=== PATIENT | female | born 1990 | race Caucasian/White ===

== ENCOUNTER 2020-03-15 15:55 | Emergency (ER) | payer OTHER, SELFPAY ==
[2020-03-15 16:11] VITALS: BP 145/86; PULSE 93; RESP 16; TEMP 37.7; O2SAT 100
--- NOTE | 2020-03-15 16:22 | ED.SKABFB ---
HPI - Skin/Abscess/Foreign Bdy General Chief complaint: Skin/Abscess/Foreign Body Stated complaint: Bite Time Seen by Provider: 03/15/20 16:23 Source: patient and RN notes reviewed Mode of arrival: ambulatory Limitations: no limitations History of Present Illness HPI narrative: 30-year-old female presents with concern for an area on her wrist that is inflamed, red with drainage. Reports the area started out as a pimple, then became larger, redder and had drainage. Denies any intervention. Reports she picked at the area. MD complaint: abscess/boil Related Data Home Medications Medication Instructions Recorded Confirmed medroxyprogesterone [Depo-Provera] 150 mg IM [id number] 03/15/20 03/15/20 Allergies Allergy/AdvReac Type Severity Reaction Status Date / Time tramadol Allergy Severe Swelling Verified 03/15/20 16:23 of Lip/Tongue/Throat clindamycin Allergy Intermediate Chest Pain Verified 03/15/20 16:23 Review of Systems Review of Systems: Narrative: CONSTITUTIONAL: Denies malaise, chills, sweats, or fever. CARDIOVASCULAR: Denies chest pain, palpitations SKIN: Reports small red area, inflamed with drainage, on her right wrist MUSCULOSKELETAL: Denies myalgia. All systems reviewed & are unremarkable except as noted in HPI and below PMFSH Comments At time of signature, agree with nursing past medical, surgical, social and family history. There is no relevant family history pertinent to the presenting complaint Exam Narrative: Exam Narrative: GENERAL: Well-appearing, well-nourished, and in no acute distress. HEAD: Normocephalic NECK: Supple CHEST: No respiratory distress. Speaks in full sentences. HEART: Regular rate and rhythm. EXTREMITIES: Normal range of motion, normal strength and sensation. SKIN: Warm, dry, no rash. Small pustule, erythematous with a central scab consistent with folliculitis on the anterior right wrist NEURO: Alert and oriented x3. PSYCH: Normal mood and affect Course Course Emergency Course: Patient is aware of diagnosis, understands and agrees to treatment plan. Anticipatory guidance given. Patient agrees to follow-up as directed and is aware of reasons to seek care at the emergency department. Portions of this record may have been created with voice recognition software Vital Signs Vital signs: Vital Signs Temperature 99.9 F H 03/15/20 16:11 Pulse Rate 93 03/15/20 16:11 Respiratory Rate 16 03/15/20 16:11 Blood Pressure 145/86 H 03/15/20 16:11 Pulse Oximetry 100 03/15/20 16:11 Temperature 99.9 F H 03/15/20 16:11 Pulse Rate 93 03/15/20 16:11 Respiratory Rate 16 03/15/20 16:11 Blood Pressure 145/86 H 03/15/20 16:11 Pulse Oximetry 100 03/15/20 16:11 Reviewed. Patient has been instructed to follow up with her primary care provider within the next week regarding her elevated blood pressure today. MDM - Skin/Abscess/Foreign Bdy MDM Narrative Medical decision making narrative: Exam findings show no acute concerns or changes; patient is non-toxic appearing and is in no distress. Patient is appropriate for outpatient treatment and follow-up. Differential Diagnosis Differential diagnosis: Likely abscess of skin or subcutaneous tissue, cellulitis and insect bites Critical Care Time Critical Care Time Critical Care Time: No Discharge Plan Discharge Clinical Impression: Folliculitis Patient Disposition: Home, Self-Care Condition: Stable Instructions: Antibiotic Form, Folliculitis (ED) Additional Instructions: Please follow up with your Primary Care Doctor if symptoms worsen or do not improve. Rest and elevate affected area; apply moist heat 3-4 times daily for 10-15 minutes. Take Motrin 600mg every 8 hours with food for pain. Please use antibiotic ointment as directed. If you experience any worsening redness, swelling, streaking (red lines), fever or chills please go to the ER Your blood pressure was elevated above 120/80 today at [facility]
== END 2020-03-15 16:33 | disposition home or self-care (01) ==
PROVIDERS: Emergency Provider Nurse Practitioner
DX: L73.9 Follicular disorder, unspecified (principal); R03.0 Elevated blood-pressure reading, without diagnosis of hypertension
CPT/HCPCS: 99203; G0463

== ENCOUNTER 2021-03-14 19:13 | Emergency (ER) | payer OTHER, SELFPAY ==
--- NOTE | 2021-03-14 19:17 | ED.EYEPROB ---
HPI - Eye Problem General Chief complaint: Eye Problems Stated complaint: Redness, pain and swollen left Eye Time Seen by Provider: 03/14/21 19:23 Source: patient and RN notes reviewed Mode of arrival: ambulatory Limitations: no limitations History of Present Illness HPI Narrative: 41-year-old female presents concern for left upper eyelid pain, redness, swelling. Reports symptoms started 2 days ago. She reports some crusted drainage on the eyelid. Reports vision changes, eye redness. Denies injury or trauma. MD chief complaint: eye pain Related Data Home Medications Medication Instructions Recorded Confirmed medroxyprogesterone [Depo-Provera] 150 mg IM [id number] 03/15/20 03/14/21 Allergies Allergy/AdvReac Type Severity Reaction Status Date / Time tramadol Allergy Severe Swelling Verified 03/14/21 19:27 of Lip/Tongue/Throat clindamycin Allergy Intermediate Chest Pain Verified 03/14/21 19:27 bacitracin Allergy Mild rash Verified 03/14/21 19:32 [From Neosporin ([id number])] neomycin Allergy Mild rash Verified 03/14/21 19:32 [From Neosporin ([id number])] polymyxin B Allergy Mild rash Verified 03/14/21 19:32 [From Neosporin ([id number])] Review of Systems Review of Systems: CONSTITUTIONAL: Denies malaise, chills, sweats, or fever. EYES: Denies visual changes. Reports left eyelid redness, swelling, pain, discharge. ENT: Denies rhinorrhea, congestion, sinus pain, otalgia or sore throat. SKIN: Denies rash or itching. All systems reviewed & are unremarkable except as noted in HPI and below PMFSH Comments At time of signature, agree with nursing past medical, surgical, social and family history. There is no relevant family history pertinent to the presenting complaint Exam Narrative: GENERAL: Well-appearing, well-nourished, and in no acute distress. HEAD: Normocephalic, atraumatic. EYES: PERRLA, conjunctivae clear, sclera clear, and EOMI. No nystagmus. Left upper eyelid erythema, edema noted ENT: Nares clear. Mucous membranes moist. NECK: Supple. CHEST: No respiratory distress. Speaks in full sentences. HEART: Regular rate and rhythm. SKIN: Warm, dry, no rash. NEURO: Alert and oriented x3. PSYCH: Normal mood and affect Course Course Emergency Course: Patient is aware of diagnosis, understands and agrees to treatment plan. Anticipatory guidance given. Patient agrees to follow-up as directed and is aware of reasons to seek care at the emergency department. Portions of this record may have been created with voice recognition software Vital Signs Vital signs: Reviewed. MDM - Eye Problem MDM Narrative Medical decision making narrative: Consideration of the following conditions may be warranted for the presenting problem, they are not final diagnoses: Bacterial conjunctivitis, allergic conjunctivitis, viral conjunctivitis, foreign body, blepharitis, chalazion, hordeolum, corneal abrasion, preseptal cellulitis, orbital cellulitis. No evidence of proptosis, ophthalmoplegia, vision loss, pain with eye movement. Exam findings show no acute concerns or changes; patient is non-toxic appearing and is in no distress. Patient is appropriate for outpatient treatment and follow-up. Critical Care Time Critical Care Time Critical Care Time: No Discharge Plan Discharge Clinical Impression: Hordeolum Qualifiers: Hordeolum type: internum Laterality: left Eyelid: upper Qualified Code(s): H00.024 - Hordeolum internum left upper eyelid Patient Disposition: Home, Self-Care Condition: Stable Instructions: Otto (ED) Additional Instructions: Do not touch or rub your eye. Use a warm compress on your eye 4-5 times daily Use eyedrops as directed Practice good handwashing You may take Tylenol or ibuprofen for pain Follow-up with PCP or dental manager if condition is not improving in 2-3days. Go to the emergency room if you have pain behind your eye, pressure behind
[2021-03-14 19:20] VITALS: BP 123/74; PULSE 69; RESP 16; TEMP 37.3; O2SAT 99
[2021-03-14 19:28] VITALS: BP 123/74; PULSE 69; RESP 16; TEMP 37.3; O2SAT 99
== END 2021-03-14 19:37 | disposition home or self-care (01) ==
PROVIDERS: Emergency Provider Nurse Practitioner
DX: H00.024 Hordeolum internum left upper eyelid (principal)
CPT/HCPCS: 99213; G0463

== ENCOUNTER 2021-09-15 18:52 | Emergency (ER) | payer OTHER, SELFPAY ==
[2021-09-15 19:02] VITALS: BP 122/79; PULSE 87; RESP 14; TEMP 37.7; O2SAT 100
--- NOTE | 2021-09-15 19:23 | ED.URI ---
HPI - URI/Sore Throat General Chief Complaint: Upper Respiratory Infection Stated Complaint: sinus infection Time Seen by Provider: 09/15/21 19:26 Source: patient Mode of arrival: ambulatory Limitations: no limitations History of Present Illness HPI Narrative: 31-year-old female presented for complaint of sinus pressure and congestion for approximately 4 weeks. At the onset of symptoms, she was positive for Covid. Currently endorses sinus congestion, postnasal drainage and cough. She denies ear pain, sore throat, headache or dizziness, wheezing, or shortness of breath. Has been taking DayQuil and Vicks for her symptoms. MD elicited complaint: cough Related Data Home Medications Medication Instructions Recorded Confirmed medroxyprogesterone [Depo-Provera] 150 mg IM [id number] 03/15/20 03/14/21 Allergies Allergy/AdvReac Type Severity Reaction Status Date / Time tramadol Allergy Severe Swelling Verified 03/14/21 19:27 of Lip/Tongue/Throat clindamycin Allergy Intermediate Chest Pain Verified 03/14/21 19:27 bacitracin Allergy Mild rash Verified 03/14/21 19:32 [From Neosporin ([id number])] neomycin Allergy Mild rash Verified 03/14/21 19:32 [From Neosporin ([id number])] polymyxin B Allergy Mild rash Verified 03/14/21 19:32 [From Neosporin ([id number])] Review of Systems Review of Systems: CONSTITUTIONAL: Denies malaise, chills, sweats, fever. EYES: Denies visual changes, redness, or discharge. ENT: Reports rhinorrhea, congestion, sinus pain, otalgia and sore throat. CARDIOVASCULAR: Denies chest pain, palpitations, or edema. RESPIRATORY: Reports cough, sinus congestion and post nasal drainage. Denies dyspnea. GASTROINTESTINAL: Denies abdominal pain, nausea, vomiting, diarrhea SKIN: Denies rash or itching. MUSCULOSKELETAL: Denies myalgia. NEUROLOGIC: Denies headache. Exam Narrative: GENERAL: Ill-appearing, nontoxic no acute distress. HEAD: Normocephalic EYES: PERRLA, conjunctivae clear ENT: Mucous membranes moist. TM pearly abel with dull light reflex bilaterally, bilateral canals erythematous; no tragal tenderness. Oropharynx erythematous without lesions and without exudate, no drooling, no hoarseness, uvula midline. NECK: Supple. No lymphadenopathy CHEST: Clear to auscultation, breath sounds equal. No wheezing, rhonchi, rales, or stridor. No respiratory distress, speaks in full sentences. HEART: Regular rate and rhythm. No murmur heard. SKIN: Warm, dry, no rash. NEURO: Alert and oriented x3. PSYCH: Normal mood and affect Course Course Emergency Course: Patient is aware of diagnosis, understands and agrees to treatment plan. Anticipatory guidance given. Patient agrees to follow-up as directed and is aware of reasons to seek care at the emergency department. Portions of this record may have been created with voice recognition software Level of Care: Express Care Visit Vital Signs Vital signs: Vital Signs Temperature 99.9 F H 09/15/21 19:02 Pulse Rate 87 09/15/21 19:02 Respiratory Rate 14 09/15/21 19:02 Blood Pressure 122/79 09/15/21 19:02 Pulse Oximetry 100 09/15/21 19:02 Temperature 99.9 F H 09/15/21 19:02 Pulse Rate 87 09/15/21 19:02 Respiratory Rate 14 09/15/21 19:02 Blood Pressure 122/79 09/15/21 19:02 Pulse Oximetry 100 09/15/21 19:02 reviewed MDM - URI/Sore Throat Differential Diagnosis Differential diagnosis: Likely upper respiratory infection, sinusitis and viral infection Discharge Plan Discharge Clinical Impression: Upper respiratory infection Qualifiers: URI type: unspecified URI Qualified Code(s): J06.9 - Acute upper respiratory infection, unspecified Patient Disposition: Home, Self-Care Condition: Stable Instructions: Antibiotic Form, Rhinosinusitis (ED) Additional Instructions: Recommend Flonase or Vicks spray and Zyrtec Tylenol 1000mg every 8 hours as needed for pain/pressure, alternate with
== END 2021-09-15 19:39 | disposition home or self-care (01) ==
PROVIDERS: Emergency Provider Nurse Practitioner Family
DX: J06.9 Acute upper respiratory infection, unspecified (principal); Z86.16 Personal history of COVID-19
CPT/HCPCS: 99213; G0463

== ENCOUNTER 2021-10-02 19:26 | Emergency (ER) | payer OTHER, SELFPAY ==
[2021-10-02 19:30] VITALS: BP 130/77; PULSE 83; RESP 14; TEMP 36.4; O2SAT 100
--- NOTE | 2021-10-02 19:48 | ED.URI ---
HPI - URI/Sore Throat General Chief Complaint: Upper Respiratory Infection Stated Complaint: Chest Congestion Time Seen by Provider: 10/02/21 19:39 Source: patient and RN notes reviewed Mode of arrival: ambulatory Limitations: no limitations History of Present Illness HPI Narrative: Patient presents today complaining of chest congestion. 1 week ago she was seen in the ER at [facility] and was diagnosed with pneumonia. She was placed on Levaquin at that time and finished her last pill today. States her symptoms had significantly improved but she has some lingering chest congestion with occasional productive cough as well as some shortness of breath with exertion. She has been taking some Zyrtec and Flonase as well. She is wondering if she needs another course of antibiotics. Prior to being seen in the ER, on 09/15/2021, she was seen at urgent care and diagnosed with a URI, and placed on 7 days of Augmentin. MD elicited complaint: cough (Chest congestion) Related Data Home Medications Medication Instructions Recorded Confirmed medroxyprogesterone [Depo-Provera] 150 mg IM [id number] 03/15/20 10/02/21 Allergies Allergy/AdvReac Type Severity Reaction Status Date / Time tramadol Allergy Severe Swelling Verified 10/02/21 19:34 of Lip/Tongue/Throat clindamycin Allergy Intermediate Chest Pain Verified 10/02/21 19:34 bacitracin Allergy Mild rash Verified 10/02/21 19:34 [From Neosporin ([id number])] neomycin Allergy Mild rash Verified 10/02/21 19:34 [From Neosporin ([id number])] polymyxin B Allergy Mild rash Verified 10/02/21 19:34 [From Neosporin ([id number])] Review of Systems Review of Systems: CONSTITUTIONAL: Denies body aches, fever, chills, or sweats. EYES: Denies visual changes, redness, or discharge. ENT: Denies rhinorrhea, congestion, sore throat, or otalgia. CARDIOVASCULAR: Denies chest pain, palpitations, or edema. RESPIRATORY: + Cough, chest congestion, shortness of breath with exertion GASTROINTESTINAL: Denies abdominal pain, nausea, vomiting, or diarrhea. GENITOURINARY: Denies dysuria or hematuria. SKIN: Denies rash, itching, or wounds. MUSCULOSKELETAL: Denies back pain, joint pain, or myalgia. NEUROLOGIC: Denies headache, numbness, tingling, or weakness. PSYCH: Denies depression or anxiety. PMFSH Comments At time of signature, I have reviewed and agree with nursing past medical, surgical, social and family history unless otherwise noted. Please see nursing chart for further information. There is no relevant family history pertinent to the presenting complaint Exam Narrative: GENERAL: Well-appearing, well-nourished, and in no acute distress. HEAD: Normocephalic, atraumatic. EYES: EOMI. No redness or drainage. Conjunctivae normal. ENT: Mucous membranes pink and moist. Nares clear. No rhinorrhea. TMs normal bilaterally. Throat normal. Uvula midline. NECK: Normal AROM. Supple. No lymphadenopathy. CHEST: No respiratory distress. Clear to auscultation. HEART: Regular rate and rhythm. No murmur appreciated. Normal peripheral pulses. EXTREMITIES: Normal range of motion. No edema. SKIN: Warm, dry, no rash. Capillary refill normal. Normal skin turgor. NEURO: No focal deficits. Alert and oriented x3. Gait steady. PSYCH: Normal affect. No signs of depression or anxiety. Course Course Level of Care: Express Care Visit Vital Signs Vital signs: Vital Signs Temperature 97.6 F 10/02/21 19:30 Pulse Rate 83 10/02/21 19:30 Respiratory Rate 14 10/02/21 19:30 Blood Pressure 130/77 10/02/21 19:30 Pulse Oximetry 100 10/02/21 19:30 Temperature 97.6 F 10/02/21 19:30 Pulse Rate 83 10/02/21 19:30 Respiratory Rate 14 10/02/21 19:30 Blood Pressure 130/77 10/02/21 19:30 Pulse Oximetry 100 10/02/21 19:30 Reviewed. Pt has been instructed to follow up with her PCP regarding her elevated blood pressure today. WHIT - ADE/Cale Partida
== END 2021-10-02 19:50 | disposition home or self-care (01) ==
PROVIDERS: Emergency Provider Nurse Practitioner
DX: R09.89 Other specified symptoms and signs involving the circulatory and respiratory systems (principal)
CPT/HCPCS: 99213; G0463

== ENCOUNTER 2022-02-23 19:22 | Emergency (ER) | payer OTHER, SELFPAY ==
--- NOTE | 2022-02-23 19:23 | ED.URI ---
HPI - URI/Sore Throat General Chief Complaint: Upper Respiratory Infection Stated Complaint: chest congestion Time Seen by Provider: 02/23/22 19:23 Source: patient and RN notes reviewed History of Present Illness HPI Narrative: Patient is a 31-year-old female who presents the urgent care with complaints of chest congestion for 1 week. Patient states that she has had a harsh cough and has been to continue to smoke cigarettes. Patient states she went to [facility] ER last week and they were more focused on the nausea, vomiting and dehydration. Patient states that she took Zofran and did have resolution of those symptoms. Patient states that her COVID was negative at that time. Patient has not taken anything [id number] for her symptoms. No other acute complaints. No acute distress noted. Patient aware of the plan of care. Some parts of this dictation were generated by voice recognition software and may contain typographical and/or grammatical inaccuracies. Related Data Home Medications Medication Instructions Recorded Confirmed medroxyprogesterone 150 mg/mL 150 mg IM [id number] 03/15/20 02/23/22 intramuscular syringe (Depo-Provera) ondansetron 4 mg disintegrating 1 tablet PRN 02/23/22 02/23/22 tablet Allergies Allergy/AdvReac Type Severity Reaction Status Date / Time tramadol Allergy Severe Swelling Verified 02/23/22 19:34 of Lip/Tongue/Throat clindamycin Allergy Intermediate Chest Pain Verified 02/23/22 19:34 bacitracin Allergy Mild rash Verified 02/23/22 19:34 [From Neosporin ([id number])] neomycin Allergy Mild rash Verified 02/23/22 19:34 [From Neosporin ([id number])] polymyxin B Allergy Mild rash Verified 02/23/22 19:34 [From Neosporin ([id number])] Review of Systems Review of Systems: CONSTITUTIONAL: Denies fever, chills, or sweats. EYES: Denies visual changes, redness, or discharge. ENT: Denies rhinorrhea, congestion, sore throat, or otalgia. CARDIOVASCULAR: Denies chest pain, palpitations, or edema. RESPIRATORY: Reports of productive cough with intermittent dyspnea and wheezes GASTROINTESTINAL: Denies abdominal pain, nausea, vomiting, or diarrhea. GENITOURINARY: Denies dysuria or hematuria. SKIN: Denies rash or itching. MUSCULOSKELETAL: Denies back pain, joint pain, or myalgia. NEUROLOGIC: Denies headache, numbness, or weakness. All other systems reviewed are negative, except as documented in HPI. PMFSH Comments At the time of my signature, I reviewed and agree with the nursing past medical, surgical, social, and family history. There is no relevant family history pertinent to the patient complaint. Exam Narrative: GENERAL: This is a well-nourished, well-developed patient, in no apparent distress. HEAD: normocephalic, atraumatic. EYES: PERRL. Sclera clear/white. Vision is grossly intact. EARS: External ears normal, auditory canals clear and without drainage, TMs normal without perforation. Hearing grossly intact. NOSE: External nose normal with no obvious nasal discharge, nares without redness, no rhinorrhea. THROAT: Mucous membranes moist, posterior pharynx clear. Moderate postnasal drainage NECK: Neck supple CARDIOVASCULAR: Regular rate and rhythm without murmurs, gallops, or rubs. RESPIRATORY: Scant amatory wheezes with crackles throughout SKIN: warm, intact with no suspicious lesions or rash, good texture and turgor. NEURO: awake, alert, and oriented to person, place and time. There were no obvious focal neurologic abnormalities. EXTREMITIES: No clubbing, cyanosis, or edema. Course Course Level of Care: Express Care Visit Vital Signs Vital signs: Vital Signs Temperature 97.8 F 02/23/22 19:26 Pulse Rate 83 02/23/22 19:26 Respiratory Rate 14 02/23/22 19:26 Blood Pressure 134/90 02/23/22 19:26 Pulse Oximetry 100 02/23/22 19:26 Oxygen Delivery Room Air 02/23/22 19:26 Temperature 97.8 F 02/23/22 19:26 Pu
[2022-02-23 19:26] VITALS: BP 134/90; PULSE 83; RESP 14; TEMP 36.6; O2SAT 100
== END 2022-02-23 19:51 | disposition home or self-care (01) ==
PROVIDERS: Emergency Provider Nurse Practitioner Family
DX: J40 Bronchitis, not specified as acute or chronic (principal); J44.9 Chronic obstructive pulmonary disease, unspecified
CPT/HCPCS: 99213; G0463

== ENCOUNTER 2022-03-05 19:15 | Emergency (ER) | payer OTHER, SELFPAY ==
[2022-03-05 19:24] VITALS: BP 137/73; PULSE 94; RESP 16; TEMP 37.2; O2SAT 98
--- NOTE | 2022-03-05 19:31 | ED.GENADULT ---
HPI - General Adult General Chief complaint: Skin/Abscess/Foreign Body Stated complaint: mouth is on fire Time Seen by Provider: 03/05/22 19:30 Source: patient Mode of arrival: ambulatory History of Present Illness HPI narrative: 32-year-old female presented for complaint of white patches to her mouth after taking an antibiotic. She states she has a thrush that she has had in the past. Symptoms started about 3 days ago. She denies any other yeast symptoms. Related Data Home Medications Medication Instructions Recorded Confirmed medroxyprogesterone 150 mg/mL 150 mg IM [id number] 03/15/20 03/05/22 intramuscular syringe (Depo-Provera) Allergies Allergy/AdvReac Type Severity Reaction Status Date / Time tramadol Allergy Severe Swelling Verified 03/05/22 19:34 of Lip/Tongue/Throat clindamycin Allergy Intermediate Chest Pain Verified 03/05/22 19:34 bacitracin Allergy Mild rash Verified 03/05/22 19:34 [From Neosporin ([id number])] neomycin Allergy Mild rash Verified 03/05/22 19:34 [From Neosporin ([id number])] polymyxin B Allergy Mild rash Verified 03/05/22 19:34 [From Neosporin ([id number])] Review of Systems Review of Systems: CONSTITUTIONAL: Denies body aches, fever, chills ENT: Denies rhinorrhea, congestion, sore throat, or otalgia. CARDIOVASCULAR: Denies chest pain, palpitations RESPIRATORY: Denies cough or dyspnea. SKIN: Denies rash, itching, or wounds. MUSCULOSKELETAL: Denies myalgia. NEUROLOGIC: Denies headache, numbness, tingling, or weakness. PMFSH Comments At time of signature, I have reviewed and agree with nursing past medical, surgical, social and family history unless otherwise noted. Please see nursing chart for further information. There is no relevant family history pertinent to the presenting complaint Exam Narrative: GENERAL: Well-appearing EYES: EOMI. No redness or drainage. Conjunctivae normal. ENT: Dental pain location of Mucous membranes pink and moist. Scattered white patches to gums and oral mucosa. Throat normal. Uvula midline. CHEST: No respiratory distress. Clear to auscultation. HEART: Regular rate and rhythm. No murmur appreciated. SKIN: Warm, dry, no rash. Normal skin turgor. Left forearm with abrasion dried/scabbed NEURO: No focal deficits. Alert and oriented x3. Course Course Emergency Course: Patient is aware of diagnosis, understands and agrees to treatment plan. Anticipatory guidance given. Patient agrees to follow-up as directed and is aware of reasons to seek care at the emergency department. Portions of this record may have been created with voice recognition software Level of Care: Express Care Visit Vital Signs Vital signs: Vital Signs Temperature 99.0 F 03/05/22 19:24 Pulse Rate 94 03/05/22 19:24 Respiratory Rate 16 03/05/22 19:24 Blood Pressure 137/73 03/05/22 19:24 Pulse Oximetry 98 03/05/22 19:24 Oxygen Delivery Room Air 03/05/22 19:24 Temperature 99.0 F 03/05/22 19:24 Pulse Rate 94 03/05/22 19:24 Respiratory Rate 16 03/05/22 19:24 Blood Pressure 137/73 03/05/22 19:24 Pulse Oximetry 98 03/05/22 19:24 Oxygen Delivery Room Air 03/05/22 19:24 Medical Decision Making MDM Narrative Medical decision making narrative: Advised supportive measures and signs/symptoms to go to the ER. Pt is appropriate for outpt treatment and f/u. Differential Diagnosis Differential Diagnosis: Oral thrush, canker sores, gingivitis Vital Signs Vital Signs: Vital Signs Temperature 99.0 F 03/05/22 19:24 Pulse Rate 94 03/05/22 19:24 Respiratory Rate 16 03/05/22 19:24 Blood Pressure 137/73 03/05/22 19:24 Pulse Oximetry 98 03/05/22 19:24 Oxygen Delivery Room Air 03/05/22 19:24 Temperature 99.0 F 03/05/22 19:24 Pulse Rate 94 03/05/22 19:24 Respiratory Rate 16 03/05/22 19:24 Blood Pressure 137/73 03/05/22 19:24 Pulse Oximetry 9
== END 2022-03-05 20:00 | disposition home or self-care (01) ==
PROVIDERS: Emergency Provider Nurse Practitioner Family
DX: B37.0 Candidal stomatitis (principal); J44.9 Chronic obstructive pulmonary disease, unspecified
CPT/HCPCS: 99213; G0463

== ENCOUNTER 2022-05-25 19:10 | Emergency (ER) | payer SELFPAY ==
--- NOTE | 2022-05-25 19:30 | ED.URI ---
HPI - URI/Sore Throat General Chief Complaint: Upper Respiratory Infection Stated Complaint: Congestion cough Time Seen by Provider: 05/25/22 19:30 Source: patient and RN notes reviewed History of Present Illness HPI Narrative: Patient is a 32-year-old female who presents the urgent care with complaints of cough and congestion for 1 week. Patient states the cough is wet and productive yellow. Patient also reports of nasal congestion. Denies of any fevers, shortness of breath, nausea or vomiting. Denies any ill exposures. Patient states she is concerned because she is had a history of pneumonia and bronchitis in the past. Patient is a current smoker. Patient has been using her leftover inhaler. No other acute complaints. No acute distress noted. Patient aware of the plan of care. Some parts of this dictation were generated by voice recognition software and may contain typographical and/or grammatical inaccuracies. Related Data Home Medications Medication Instructions Recorded Confirmed medroxyprogesterone 150 mg/mL 150 mg IM [id number] 03/15/20 05/25/22 intramuscular syringe (Depo-Provera) Allergies Allergy/AdvReac Type Severity Reaction Status Date / Time tramadol Allergy Severe Swelling Verified 05/25/22 19:50 of Lip/Tongue/Throat clindamycin Allergy Intermediate Chest Pain Verified 05/25/22 19:50 bacitracin Allergy Mild rash Verified 05/25/22 19:50 [From Neosporin ([id number])] neomycin Allergy Mild rash Verified 05/25/22 19:50 [From Neosporin ([id number]-[id number])] polymyxin B Allergy Mild rash Verified 05/25/22 19:50 [From Neosporin ([id number])] Review of Systems Review of Systems: CONSTITUTIONAL: Denies fever, chills, or sweats. EYES: Denies visual changes, redness, or discharge. ENT: Reports of nasal congestion CARDIOVASCULAR: Denies chest pain, palpitations, or edema. RESPIRATORY: Reports a productive cough without dyspnea GASTROINTESTINAL: Denies abdominal pain, nausea, vomiting, or diarrhea. GENITOURINARY: Denies dysuria or hematuria. SKIN: Denies rash or itching. MUSCULOSKELETAL: Denies back pain, joint pain, or myalgia. NEUROLOGIC: Denies headache, numbness, or weakness. All other systems reviewed are negative, except as documented in HPI. PMFSH Comments At the time of my signature, I reviewed and agree with the nursing past medical, surgical, social, and family history. There is no relevant family history pertinent to the patient complaint. Exam Narrative: GENERAL: This is a well-nourished, well-developed patient, in no apparent distress. HEAD: normocephalic, atraumatic. EYES: PERRL. Sclera clear/white. Vision is grossly intact. EARS: External ears normal, auditory canals clear and without drainage, TMs normal without perforation. Hearing grossly intact. NOSE: External nose normal with no obvious nasal discharge, nares without redness, no rhinorrhea. THROAT: Mucous membranes moist, posterior pharynx clear. Mild postnasal drainage NECK: Neck supple, non-tender without lymphadenopathy, masses or thyromegaly. CARDIOVASCULAR: Regular rate and rhythm without murmurs, gallops, or rubs. RESPIRATORY: Inspiratory wheezes throughout with slight crackles SKIN: warm, intact with no suspicious lesions or rash, good texture and turgor. NEURO: awake, alert, and oriented to person, place and time. There were no obvious focal neurologic abnormalities. EXTREMITIES: No clubbing, cyanosis, or edema. Course Course Level of Care: Express Care Visit Vital Signs Vital signs: Vital Signs Temperature 96.8 F L 05/25/22 19:44 Pulse Rate 88 05/25/22 19:44 Respiratory Rate 14 05/25/22 19:44 Blood Pressure 135/86 05/25/22 19:44 Pulse Oximetry 99 05/25/22 19:44 Oxygen Delivery Room Air 05/25/22 19:44 Temperature 96.8 F L 05/25/22 19:44 Pulse Rate 88 05/25/22 19:44 Respiratory Rate 14 05/25/22 19:44 Blood Pressure 135/86 05/25/22 19:44 Pul
[2022-05-25 19:44] VITALS: BP 135/86; PULSE 88; RESP 14; TEMP 36; O2SAT 99
== END 2022-05-25 20:02 | disposition home or self-care (01) ==
PROVIDERS: Emergency Provider Nurse Practitioner Family
DX: J40 Bronchitis, not specified as acute or chronic (principal); J44.9 Chronic obstructive pulmonary disease, unspecified
CPT/HCPCS: 99213; G0463

== ENCOUNTER 2022-06-06 10:49 | Emergency (ER) | payer SELFPAY ==
[2022-06-06 10:52] VITALS: BP 124/78; PULSE 89; RESP 18; TEMP 36.7; O2SAT 100
[2022-06-06 11:06] VITALS: BP 124/78; PULSE 89; RESP 18; TEMP 36.7; O2SAT 100
--- NOTE | 2022-06-06 11:09 | ED.URI ---
HPI - URI/Sore Throat General Chief Complaint: Upper Respiratory Infection Stated Complaint: congestion coughing Time Seen by Provider: 06/06/22 11:09 Source: patient Mode of arrival: ambulatory Limitations: no limitations History of Present Illness HPI Narrative: 32-year-old female presents with complaint of nasal congestion, drainage, continued cough. Was seen approximately 2 weeks ago for similar complaints. Was given steroids, inhaler and Tessalon Perles. States that she is still using Tessalon Perles and inhaler. Is coughing mostly at night but states that Tessalon Perles are helping. States that congestion is not improving is taking an [id number] decongestant with no relief. Denies nausea vomiting diarrhea. No shortness of breath or chest pain. Afebrile. All systems reviewed and negative except as noted above. Related Data Home Medications Medication Instructions Recorded Confirmed medroxyprogesterone 150 mg/mL 150 mg IM [id number] 03/15/20 06/06/22 intramuscular syringe (Depo-Provera) Allergies Allergy/AdvReac Type Severity Reaction Status Date / Time tramadol Allergy Severe Swelling Verified 06/06/22 11:05 of Lip/Tongue/Throat clindamycin Allergy Intermediate Chest Pain Verified 06/06/22 11:05 bacitracin Allergy Mild rash Verified 06/06/22 11:05 [From Neosporin ([id number])] neomycin Allergy Mild rash Verified 06/06/22 11:05 [From Neosporin ([id number])] polymyxin B Allergy Mild rash Verified 06/06/22 11:05 [From Neosporin ([id number]-tse-fuajn)] Review of Systems Review of Systems: CONSTITUTIONAL: Denies fever, chills, or sweats. EYES: Denies visual changes, redness, or discharge. ENT: Reports rhinorrhea, congestion, sore throat. Denies otalgia. CARDIOVASCULAR: Denies chest pain, palpitations, or edema. RESPIRATORY: Reports cough. Denies dyspnea. GASTROINTESTINAL: Denies abdominal pain, nausea, vomiting, or diarrhea. GENITOURINARY: Denies dysuria or hematuria. SKIN: Denies rash or itching. MUSCULOSKELETAL: Denies back pain, joint pain, or myalgia. NEUROLOGIC: Denies headache, numbness, or weakness. PSYCHIATRIC: Denies anxiety or depression. All other systems reviewed are negative, except as documented in HPI. PMFSH Comments At time of signature, agree with nursing past medical, surgical, social and family history. There is no relevant family history pertinent to the presenting complaint. Exam Narrative: GENERAL: This is a well-nourished, well-developed patient, in no apparent distress. HEAD: normocephalic, atraumatic. EYES: PERRL. Sclera clear/white. Vision is grossly intact. EARS: External ears normal, auditory canals clear and without drainage, TMs normal without perforation. Hearing grossly intact. NOSE: External nose normal with clear nasal discharge, mild erythema to nares with no swelling. Bilateral maxillary sinus tenderness. THROAT: Mucous membranes moist, clear postnasal drainage. NECK: Neck supple, non-tender without lymphadenopathy, masses or thyromegaly. CARDIOVASCULAR: Regular rate and rhythm without murmurs, gallops, or rubs. RESPIRATORY: Clear to auscultation. Breath sounds equal bilaterally. No wheezes, rales, or rhonchi. SKIN: warm, Dry, intact with no suspicious lesions or rash, good texture and turgor. NEURO: awake, alert, and oriented to person, place and time. There were no obvious focal neurologic abnormalities. EXTREMITIES: No joint tenderness, effusion, or edema noted. Course Course Level of Care: Express Care Visit Vital Signs Vital signs: Vital Signs Temperature 36.7 C 06/06/22 10:52 Pulse Rate 89 06/06/22 10:52 Respiratory Rate 18 06/06/22 10:52 Blood Pressure 124/78 06/06/22 10:52 Pulse Oximetry 100 06/06/22 10:52 Oxygen Delivery Room Air 06/06/22 10:52 Temperature 36.7 C 06/06/22 11:06 Pulse Rate 89 06/06/22 11:06 Respiratory Rate 18 06/06/22 11:06 Blood Pressure 124/78
== END 2022-06-06 11:17 | disposition home or self-care (01) ==
PROVIDERS: Emergency Provider Nurse Practitioner Family
DX: J01.90 Acute sinusitis, unspecified (principal)
CPT/HCPCS: 99213; G0463

== ENCOUNTER 2022-08-22 18:42 | Emergency (ER) | payer BC, SELFPAY ==
[2022-08-22 18:55] VITALS: BP 128/70; PULSE 87; RESP 18; TEMP 37.4; O2SAT 99
--- NOTE | 2022-08-22 19:25 | ED.GENADULT ---
HPI - General Adult General Chief complaint: Upper Respiratory Infection Stated complaint: shanta,sore throat Source: patient Mode of arrival: ambulatory Limitations: no limitations History of Present Illness HPI narrative: Patient presents for evaluation of upper respiratory symptoms for last 4 days. Symptoms include sore throat, sinus congestion, nasal drainage and chest congestion. No fever, chills, nausea, vomiting, diarrhea. No recent sick contacts to her knowledge. She did have COVID last year. She smokes approximately half pack per day and also smokes marijuana. She had a small amount of medication left in her albuterol inhaler. She states it helps with her symptoms but she needs a refill. In the past she has not been pleased with mucinex and states tessalon has helped. She has had similar symptoms in the past and states prednisone has helped historically. Related Data Allergies Allergy/AdvReac Type Severity Reaction Status Date / Time tramadol Allergy Severe Swelling Verified 08/22/22 18:48 of Lip/Tongue/Throat clindamycin Allergy Intermediate Chest Pain Verified 08/22/22 18:48 bacitracin Allergy Mild rash Verified 08/22/22 18:48 [From Neosporin ([id number])] neomycin Allergy Mild rash Verified 08/22/22 18:48 [From Neosporin ([id number]-[id number])] polymyxin B Allergy Mild rash Verified 08/22/22 18:48 [From Neosporin ([id number]-wbi-[id number])] Review of Systems Review of Systems: CONSTITUTIONAL: Denies fever, chills, or sweats. EYES: Denies visual changes, redness, or discharge. ENT: Reports sinus congestion, drainage, sore throat. Denies otalgia. CARDIOVASCULAR: Denies chest pain, palpitations, or edema. RESPIRATORY: Reports cough. Denies SOB. GASTROINTESTINAL: Denies abdominal pain, nausea, vomiting, or diarrhea. GENITOURINARY: Denies dysuria or hematuria. SKIN: Denies rash or itching. MUSCULOSKELETAL: Denies back pain, joint pain, or myalgia. NEUROLOGIC: Denies headache, numbness, dizziness, or weakness. PSYCHIATRIC: Denies anxiety or depression. [facility] Past Medical History Medical History Tobacco use Surgical History Surgical History No pertinent past surgical history Family History Family History Mother Family history non-contributory Social History Social History Smoking packs per day: 0.5 Smoking cigarettes per day: 10.0 Smoking status: Current every day smoker Tobacco type: cigarettes Substance use: current Substance use type: marijuana Gender identity (if verbalized by the patient): Female Sexual Orientation (if Verbalized by the Patient): Straight or Heterosexual Spiritual care concerns: No Exam Narrative: GENERAL: Well-appearing, well-nourished, and in no acute distress. HEAD: Normocephalic, atraumatic. EYES: PERRLA and EOMI. ENT: Nares clear, no rhinorrhea or epistaxis. Mucous membranes moist. Oropharynx without tonsillar hypertrophy exudate or other lesions. Bilateral TMs pearly abel nonbulging NECK: Supple. No adenopathy or masses. No carotid bruits or JVD CHEST: Clear to auscultation. No respiratory distress. No wheezes rales or rhonchi HEART: Regular rate and rhythm. No murmur heard. Normal peripheral pulses. ABDOMEN: Soft, nontender, nondistended, normal active bowel sounds. EXTREMITIES: Normal range of motion. No edema. SKIN: Warm, dry, no rash. NEURO: No focal deficits. Alert and oriented x3. PSYCH: Normal mood and affect. Course Course Emergency Course: This is a 32-year-old female who presents for evaluation of upper respiratory symptoms. Strep was negative. Exam is consistent with acute viral syndrome. Patient states prednisone has been effective in past. Given scripts for prednisone, Tessalon, albuterol. Advised on smoking cessation.
== END 2022-08-22 19:35 | disposition home or self-care (01) ==
PROVIDERS: Emergency Provider Nurse Practitioner
DX: J06.9 Acute upper respiratory infection, unspecified (principal); F17.210 Nicotine dependence, cigarettes, uncomplicated; F12.90 Cannabis use, unspecified, uncomplicated
CPT/HCPCS: 87081; 87880; 99213; G0463

== ENCOUNTER 2022-09-02 19:10 | Emergency (ER) | payer BC, SELFPAY ==
[2022-09-02 19:14] VITALS: BP 127/69; PULSE 106; RESP 16; TEMP 38.2; O2SAT 98
--- NOTE | 2022-09-02 19:15 | ED.URI ---
HPI - URI/Sore Throat General Chief Complaint: Upper Respiratory Infection Stated Complaint: Sore Throat Time Seen by Provider: 09/02/22 19:15 Source: patient Mode of arrival: ambulatory Limitations: no limitations History of Present Illness HPI Narrative: 32-year-old female presents with complaint of sinus congestion, sore throat for at least 2 weeks. Was last seen here in August 22. States at that time she had a negative strep test. Was given prednisone and benzonatate that helped her symptoms But states that they never went away. States that she has never had a sore throat for this long. Afebrile. Not taking any medications at home to treat her symptoms. All systems reviewed and negative except as noted above. Related Data Allergies Allergy/AdvReac Type Severity Reaction Status Date / Time tramadol Allergy Severe Swelling Verified 09/02/22 19:21 of Lip/Tongue/Throat clindamycin Allergy Intermediate Chest Pain Verified 09/02/22 19:21 bacitracin Allergy Mild rash Verified 09/02/22 19:21 [From Neosporin ([id number])] neomycin Allergy Mild rash Verified 09/02/22 19:21 [From Neosporin ([id number]-rih-[id number])] polymyxin B Allergy Mild rash Verified 09/02/22 19:21 [From Neosporin ([id number])] Review of Systems Review of Systems: CONSTITUTIONAL: Denies fever, chills, or sweats. EYES: Denies visual changes, redness, or discharge. ENT: Reports rhinorrhea, congestion, sore throat, sinus pressure. Denies otalgia. CARDIOVASCULAR: Denies chest pain, palpitations, or edema. RESPIRATORY: Denies cough or dyspnea. GASTROINTESTINAL: Denies abdominal pain, nausea, vomiting, or diarrhea. GENITOURINARY: Denies dysuria or hematuria. SKIN: Denies rash or itching. MUSCULOSKELETAL: Denies back pain, joint pain, or myalgia. NEUROLOGIC: Denies headache, numbness, or weakness. PSYCHIATRIC: Denies anxiety or depression. All other systems reviewed are negative, except as documented in HPI. [facility] Past Medical History Medical History Tobacco use Surgical History Surgical History No pertinent past surgical history Family History Family History Mother Family history non-contributory Social History Social History Smoking packs per day: 0.5 Smoking cigarettes per day: 10.0 Smoking status: Current every day smoker Tobacco type: cigarettes Substance use: current Substance use type: marijuana Gender identity (if verbalized by the patient): Female Sexual Orientation (if Verbalized by the Patient): Straight or Heterosexual Spiritual care concerns: No Comments At time of signature, agree with nursing past medical, surgical, social and family history. There is no relevant family history pertinent to the presenting complaint. Exam Narrative: GENERAL: This is a well-nourished, well-developed patient, in no apparent distress. HEAD: normocephalic, atraumatic. EYES: PERRL. Sclera clear/white. Vision is grossly intact. EARS: External ears normal, auditory canals clear and without drainage, Fluid bilateral TMs without perforation. NOSE: External nose normal with Drainage in erythema to nares, bilateral maxillary sinus tenderness. THROAT: Mucous membranes moist, erythema to posterior pharynx with mild swelling. NECK: Neck supple, non-tender without lymphadenopathy, masses or thyromegaly. CARDIOVASCULAR: Regular rate and rhythm without murmurs, gallops, or rubs. RESPIRATORY: Clear to auscultation. Breath sounds equal bilaterally. No wheezes, rales, or rhonchi. SKIN: warm, Dry, intact with no suspicious lesions or rash, good texture and turgor. NEURO: awake, alert, and oriented to person, place and time. There were no obvious focal neurologic abnormalities. EXTREMITIES: No joint tenderness, effusion, o
[2022-09-02 19:30] VITALS: TEMP 36.9
== END 2022-09-02 19:30 | disposition home or self-care (01) ==
PROVIDERS: Emergency Provider Nurse Practitioner Family; PCP Emergency Medicine
DX: J01.90 Acute sinusitis, unspecified (principal); J02.0 Streptococcal pharyngitis; F17.210 Nicotine dependence, cigarettes, uncomplicated
CPT/HCPCS: 99213; G0463

== ENCOUNTER 2023-03-07 17:55 | Emergency (ER) | payer BC, SELFPAY ==
[2023-03-07 18:06] VITALS: BP 123/69; PULSE 81; RESP 16; TEMP 37.2; O2SAT 99
--- NOTE | 2023-03-07 18:46 | ED.URI ---
HPI - URI/Sore Throat General Chief Complaint: Upper Respiratory Infection Stated Complaint: Congestion/Chest Congestion Time Seen by Provider: 03/07/23 18:30 Source: patient, RN notes reviewed and old records reviewed Mode of arrival: ambulatory Limitations: no limitations History of Present Illness HPI Narrative: 33 year old female who [facility] with complaints of cough and some sinus congestion for the past 5 days. Patient reports that she has cough and post nasal drainage and has been taking Claritin and Flonase, sttes initialy thought it was allergies but symptoms have not improved. Patient reports that cough is worse at night has used her inhaler which does help some. Patient has past history of pneumonia and COPD and continues to smoke 1/2 ppd of cigarettes. Patient reports no pain or fevers. MD elicited complaint: cough, rhinorrhea and nasal congestion Pertinent past history: COPD and other (bronchitis, tobacco abuse) Onset (ago): day(s) (5) Able to tolerate fluids by mouth: Yes Treatments prior to arrival: other (Flonase, Claritin, Ibuprofen ) Related Data Allergies Allergy/AdvReac Type Severity Reaction Status Date / Time tramadol Allergy Severe Swelling Verified 03/07/23 18:12 of Lip/Tongue/Throat clindamycin Allergy Intermediate Chest Pain Verified 03/07/23 18:12 bacitracin Allergy Mild rash Verified 03/07/23 18:12 [From Neosporin ([id number])] neomycin Allergy Mild rash Verified 03/07/23 18:12 [From Neosporin ([id number])] polymyxin B Allergy Mild rash Verified 03/07/23 18:12 [From Neosporin (fuv-hda-[id number])] Review of Systems Review of Systems: CONSTITUTIONAL: Denies malaise, chills, sweats, or fever. EYES: Denies visual changes, redness, or discharge. ENT: Reports rhinorrhea, congestion, no sinus pain, otalgia or sore throat. CARDIOVASCULAR: Denies chest pain, palpitations, or edema. RESPIRATORY: Reports cough.? Denies acute dyspnea expectorating white mucous GASTROINTESTINAL: Denies abdominal pain, nausea, vomiting, diarrhea SKIN: Denies rash or itching. MUSCULOSKELETAL: Denies myalgia. NEUROLOGIC: Denies headache. All systems reviewed & are unremarkable except as noted in HPI and below PMFSH Past Medical History Medical History Anxiety Bronchitis COPD (chronic obstructive pulmonary disease) Pneumonia Tobacco use Surgical History Surgical History (Updated 03/08/23 @ 20:44 by Juhi Ramsey NP) Previous section x3 Family History Family History Mother Family history non-contributory Social History Social History Smoking packs per day: 0.5 Smoking cigarettes per day: 10.0 Smoking status: Current every day smoker Tobacco type: cigarettes Substance use: current Substance use type: marijuana Living arrangements: with family Gender identity (if verbalized by the patient): Female Sexual Orientation (if Verbalized by the Patient): Straight or Heterosexual Spiritual care concerns: No Comments At time of signature, agree with nursing past medical, surgical, social and family history. There is no relevant family history pertinent to the presenting complaint Exam Narrative: GENERAL: Well-appearing, well-nourished, and in no acute distress. HEAD: Normocephalic EYES: PERRLA, conjunctivae clear ENT: Nares clear, turbinates edematous and erythematous, clear discharge. Mucous membranes moist. TM pearly abel with dull light reflex bilaterally; no tragal tenderness. Oropharynx erythematous without lesions. Tonsils not enlarged and without exudate, no drooling, no hoarseness, no trismus, uvula midline. NECK: Supple. No lymphadenopathy CHEST: Clear decreased to auscultation, breath sounds equal. No wheezing, rhonchi, rales, or stridor. No respiratory distress, speaks
== END 2023-03-07 19:15 | disposition home or self-care (01) ==
PROVIDERS: Emergency Provider Registered Nurse
DX: J06.9 Acute upper respiratory infection, unspecified (principal); R05.9 Cough, unspecified; F17.210 Nicotine dependence, cigarettes, uncomplicated; F12.90 Cannabis use, unspecified, uncomplicated; J44.9 Chronic obstructive pulmonary disease, unspecified
CPT/HCPCS: 99213; G0463

== ENCOUNTER 2023-03-18 19:43 | Emergency (ER) | payer BC, SELFPAY ==
--- NOTE | 2023-03-18 19:46 | ED.URI ---
HPI - URI/Sore Throat General Chief Complaint: Upper Respiratory Infection Stated Complaint: sore throat chest congestion Source: patient and RN notes reviewed History of Present Illness HPI Narrative: 33-year-old male presents to urgent care with complaints of a sore throat since yesterday. Patient states she has had a cough for approximately 2 weeks. Patient denies any fevers, chills, chest pain, shortness of breath, vomiting, or ear pain. Patient taking cough drops and using her inhaler at home for her cough. Related Data Home Medications Medication Instructions Recorded Confirmed medroxyprogesterone 150 mg/mL mg IM 03/18/23 intramuscular suspension Allergies Allergy/AdvReac Type Severity Reaction Status Date / Time tramadol Allergy Severe Swelling Verified 03/18/23 19:52 of Lip/Tongue/Throat clindamycin Allergy Intermediate Chest Pain Verified 03/18/23 19:52 bacitracin Allergy Mild rash Verified 03/18/23 19:52 [From Neosporin ([id number])] neomycin Allergy Mild rash Verified 03/18/23 19:52 [From Neosporin ([id number])] polymyxin B Allergy Mild rash Verified 03/18/23 19:52 [From Neosporin (glo-[id number])] Review of Systems Review of Systems: Pertinent positives and pertinent negatives per HPI. PMFSH Past Medical History Medical History Anxiety Bronchitis COPD (chronic obstructive pulmonary disease) Pneumonia Tobacco use Surgical History Surgical History (Updated 03/08/23 @ 20:44 by Juhi Ramsey NP) Previous section x3 Family History Family History Mother Family history non-contributory Social History Social History Smoking packs per day: 0.5 Smoking cigarettes per day: 10.0 Smoking status: Current every day smoker Tobacco type: cigarettes Substance use: current Substance use type: marijuana Living arrangements: with family Gender identity (if verbalized by the patient): Female Sexual Orientation (if Verbalized by the Patient): Straight or Heterosexual Spiritual care concerns: No Comments At the time of my signature, I reviewed and agree with the nursing past medical, surgical, social, and family history. There is no relevant family history pertinent to the patient complaint. Exam Narrative: GENERAL: This is a well-nourished, well-developed patient, in no apparent distress. HEAD: normocephalic, atraumatic. EYES: Sclera clear/white. Vision is grossly intact. EARS: External ears normal, auditory canals clear and without drainage, TMs normal without perforation. Hearing grossly intact. NOSE: External nose normal with no obvious nasal discharge, nares without redness, no rhinorrhea. THROAT: Mucous membranes moist, posterior pharynx clear. NECK: Neck supple, non-tender without lymphadenopathy, masses or thyromegaly. CARDIOVASCULAR: Regular rate and rhythm without murmurs, gallops, or rubs. RESPIRATORY: Clear to auscultation. Breath sounds equal bilaterally. No wheezes, rales, or rhonchi. Patient noted to have a congested cough. GASTROINTESTINAL: Abdomen soft, non-tender, nondistended. Bowel sounds are active. No hepato-splenomegaly, or palpable masses. No guarding. SKIN: warm, intact with no suspicious lesions or rash, good texture and turgor. NEURO: awake, alert, and oriented to person, place and time. There were no obvious focal neurologic abnormalities. Course Course Level of Care: Express Care Visit Vital Signs Vital signs: Vital Signs Temperature 98.5 F 03/18/23 19:50 Pulse Rate 103 H 03/18/23 19:50 Respiratory Rate 16 03/18/23 19:50 Blood Pressure 142/77 H 03/18/23 19:50 Pulse Oximetry 100 03/18/23 19:50 Oxygen Delivery Room Air 03/18/23 19:50 Temperature 98.5 F 03/18/23 19:50 Pulse Rate 103 H 03/18/23 19:50 Respiratory Rate 03/18
[2023-03-18 19:50] VITALS: BP 142/77; PULSE 103; RESP 16; TEMP 36.9; O2SAT 100
== END 2023-03-18 20:04 | disposition home or self-care (01) ==
PROVIDERS: Emergency Provider Nurse Practitioner Family
DX: J40 Bronchitis, not specified as acute or chronic (principal); J02.9 Acute pharyngitis, unspecified; F17.210 Nicotine dependence, cigarettes, uncomplicated; F12.90 Cannabis use, unspecified, uncomplicated; J44.9 Chronic obstructive pulmonary disease, unspecified
CPT/HCPCS: 87081; 87880; 99213; G0463

== ENCOUNTER → 2023-03-26 13:30 | Outpatient (CLI) | payer BC, SELFPAY ==
--- NOTE | ~2023-03-26 | XR_ITS ---
EXAMINATION: XR chest 2V Exam Date/Time: 03/26/2023 13:47 CDT HISTORY: smoker mid low back pain Comparison: None. RESULT: Lines, tubes, and devices: None. Lungs and pleura: Calcified right lower lung granuloma. Cardiomediastinal silhouette: Calcified right hilar node. Other: No acute osseous or upper abdominal finding. IMPRESSION: No acute cardiopulmonary process. Reviewed, dictated and finalized at location K.
--- NOTE | ~2023-03-26 | XR_ITS ---
EXAM: XR lumbar spine 2-3V DATE: 03/26/2023 13:58 HISTORY: smoker mid low back pain . COMPARISON: None available. FINDINGS: Mild lumbar scoliosis 5 nonrib-bearing lumbar-type vertebral bodies. Pedicles intact. Nathaly l vertebral body alignment. Moderate L1 and L5 anterior wedge deformity. Mild anterolateral L2 wedge deformity. Mild disc space narrowing at L4-5. Normal facets and posterior elements. No fracture or di slocation. IMPRESSION: Multilevel mild and moderate vertebral body compression deformities of uncertain age. Mild lumbar degenerative disc disease at L4-5 Reviewed, dictated and finalized at location K. IMPRESSION: Multilevel mild and moderate vertebral body compression deformities of uncertai n age. Mild lumbar degenerative disc disease at L4-5
== END ==
PROVIDERS: PCP Emergency Medicine; Visit Provider Emergency Medicine
DX: M51.36 Other intervertebral disc degeneration, lumbar region (principal); Z72.0 Tobacco use
CPT/HCPCS: 71046; 72100

== ENCOUNTER 2023-04-24 18:35 | Emergency (ER) | payer BC, SELFPAY ==
[2023-04-24 18:40] VITALS: BP 137/83; PULSE 118; RESP 18; TEMP 36.9; O2SAT 100
--- NOTE | 2023-04-24 18:42 | ED.GENADULT ---
HPI - General Adult General Chief complaint: Upper Respiratory Infection Stated complaint: throat /back pain Source: patient and RN notes reviewed History of Present Illness HPI narrative: 33 yo F presents to urgent care with complaints of a sore throat since yesterday. Pt also reports bilateral lower back pain which is chronic. Pt has been referred to pain [facility] but has not followed up with them yet. Denies any fever, chills, chest pain, SOB, ear pain, congestion, N/V/D, or urinary symptoms. Denies any numbness, tingling, acute injury to explain back pain, incontinence of urine or stool, or saddle anesthesia. Pt has been taking ibuprofen and Tylenol at home. Related Data Home Medications Medication Instructions Recorded Confirmed meloxicam 04/24/23 Allergies Allergy/AdvReac Type Severity Reaction Status Date / Time tramadol Allergy Severe Swelling Verified 03/18/23 19:52 of Lip/Tongue/Throat clindamycin Allergy Intermediate Chest Pain Verified 03/18/23 19:52 bacitracin Allergy Mild rash Verified 03/18/23 19:52 [From Neosporin ([id number])] neomycin Allergy Mild rash Verified 03/18/23 19:52 [From Neosporin ([id number])] polymyxin B Allergy Mild rash Verified 03/18/23 19:52 [From Neosporin ([id number])] Review of Systems Review of Systems: Pertinent positives and pertinent negatives per HPI. [facility] Past Medical History Medical History Anxiety Bronchitis COPD (chronic obstructive pulmonary disease) Pneumonia Tobacco use Surgical History Surgical History (Updated 03/08/23 @ 20:44 by Juhi Ramsey NP) Previous section x3 Family History Family History Mother Family history non-contributory Social History Social History Smoking packs per day: 0.5 Smoking cigarettes per day: 10.0 Smoking status: Current every day smoker Tobacco type: cigarettes Substance use: current Substance use type: marijuana Living arrangements: with family Gender identity (if verbalized by the patient): Female Sexual Orientation (if Verbalized by the Patient): Straight or Heterosexual Spiritual care concerns: No Comments At the time of my signature, I reviewed and agree with the nursing past medical, surgical, social, and family history. There is no relevant family history pertinent to the patient complaint. Exam Narrative: GENERAL: This is a well-nourished, well-developed patient, in no apparent distress. HEAD: normocephalic, atraumatic. EYES: Sclera clear/white. Vision is grossly intact. EARS: External ears normal, auditory canals clear and without drainage. Hearing grossly intact. NOSE: External nose normal with no obvious nasal discharge, nares without redness, no rhinorrhea. THROAT: Mucous membranes moist, posterior pharynx erythremic with white spot noted. NECK: Neck supple, non-tender without lymphadenopathy, masses or thyromegaly. CARDIOVASCULAR: Regular rate and rhythm without murmurs, gallops, or rubs. RESPIRATORY: Clear to auscultation. Breath sounds equal bilaterally. No wheezes, rales, or rhonchi. SKIN: warm, intact with no suspicious lesions or rash, good texture and turgor. NEURO: awake, alert, and oriented to person, place and time. There were no obvious focal neurologic abnormalities. EXTREMITIES: No clubbing, cyanosis, or edema. No joint tenderness, effusion, or edema noted. BACK: Nontender without deformity or crepitus. No flank tenderness. Course Course Level of Care: Express Care Visit Vital Signs Vital signs: Vital Signs Temperature 98.5 F 04/24/23 18:40 Pulse Rate 118 H 04/24/23 18:40 Respiratory Rate 18 04/24/23 18:40 Blood Pressure 137/83 04/24/23 18:40 Pulse Oximetry 100 04/24/23 18:40 Oxygen Delivery Room Air 04/24/23 18:40 Temperature 98.5 F 04/24/23
== END 2023-04-24 19:04 | disposition home or self-care (01) ==
PROVIDERS: Emergency Provider Nurse Practitioner Family; PCP Emergency Medicine
DX: J02.9 Acute pharyngitis, unspecified (principal); F17.210 Nicotine dependence, cigarettes, uncomplicated
CPT/HCPCS: 87081; 87880; 99213; G0463

== ENCOUNTER 2023-04-26 10:14 | Outpatient (CLI) | payer BC, SELFPAY ==
--- NOTE | ~2023-04-26 | US_ITS ---
US right upper quadrant INDICATION: Elevated liver function tests PROCEDURE: Realtime right upper abdominal ultrasound. COMPARISON: No prior studies for comparison. FINDINGS: The pancreas is normal without focal mass or pancreatic ductal dilation. Liver is enlarged measuring 18.4 cm. No focal hepatic masses. There is normal directional flow in the portal vein. The gallbladder is normal without stones, gallbladder wall thickening or pericholecystic fluid. Comm on bile duct measures 4.9 mm. No sonographic Wilson's sign. IMPRESSION: 1: Hepatomegaly. Reviewed, dictated and finalized at location B. IMPRESSION: 1: Hepatomegaly.
== END 2023-04-26 10:15 | disposition home or self-care (01) ==
PROVIDERS: PCP Emergency Medicine; Visit Provider Emergency Medicine
DX: R16.0 Hepatomegaly, not elsewhere classified (principal)
CPT/HCPCS: 76705

== ENCOUNTER 2023-05-31 18:16 | Emergency (ER) | payer MEDICAID, SELFPAY ==
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
[2023-05-31 18:37] VITALS: BP 127/76; PULSE 89; RESP 18; TEMP 36.9; O2SAT 98
== END 2023-05-31 18:38 | disposition home or self-care (01) ==
PROVIDERS: Emergency Provider Nurse Practitioner Family; PCP Emergency Medicine
DX: M54.50 Low back pain, unspecified (principal); F17.210 Nicotine dependence, cigarettes, uncomplicated
CPT/HCPCS: 99213; G0463

== ENCOUNTER 2023-08-05 19:35 | Emergency (ER) | payer OTHER, SELFPAY ==
[2023-08-05 19:42] VITALS: BP 141/90; PULSE 117; RESP 18; TEMP 36.8; O2SAT 100
--- NOTE | 2023-08-05 19:43 | ED.URI ---
HPI - URI/Sore Throat General Chief Complaint: Upper Respiratory Infection Stated Complaint: throat/congestion/cough Time Seen by Provider: 08/05/23 19:44 History of Present Illness HPI Narrative: 33 y/o female presented for c/o sore throat x2 days and nasal congestion with cough x4 days. Reports fever at onset. Taking ibuprofen and tylenol, used albuterol from previous bronchitis which she says helped. Denies sob, wheezing, n/v/d/f/c. Related Data Home Medications Medication Instructions Recorded Confirmed medroxyprogesterone 150 mg/mL 150 mg IM [id number] 08/05/23 08/05/23 intramuscular syringe (Depo-Provera) meloxicam 15 mg tablet 15 mg PO DAILY 08/05/23 08/05/23 Allergies Allergy/AdvReac Type Severity Reaction Status Date / Time tramadol Allergy Severe Swelling Verified 08/05/23 19:46 of Lip/Tongue/Throat clindamycin Allergy Intermediate Chest Pain Verified 08/05/23 19:46 bacitracin Allergy Mild rash Verified 08/05/23 19:46 [From Neosporin ([id number])] neomycin Allergy Mild rash Verified 08/05/23 19:46 [From Neosporin ([id number])] polymyxin B Allergy Mild rash Verified 08/05/23 19:46 [From Neosporin ([id number])] Review of Systems Review of Systems: CONSTITUTIONAL: Denies body aches, fever, chills, or sweats. EYES: Denies visual changes, redness, or discharge. ENT: Reports rhinorrhea, congestion, sore throat. CARDIOVASCULAR: Denies chest pain, palpitations, or edema. RESPIRATORY: reports cough Denies dyspnea. GASTROINTESTINAL: Denies abdominal pain, nausea, vomiting, or diarrhea. SKIN: Denies rash, itching, or wounds. MUSCULOSKELETAL: Denies back pain, joint pain, or myalgia. NEUROLOGIC: Denies headache PMFSH Past Medical History Medical History Anxiety Bronchitis COPD (chronic obstructive pulmonary disease) Pneumonia Tobacco use Surgical History Surgical History Previous section x3 Family History Family History Mother Family history non-contributory Social History Social History Smoking packs per day: 0.5 Smoking cigarettes per day: 10.0 Smoking status: Current every day smoker Tobacco type: cigarettes Substance use: current Substance use type: marijuana Living arrangements: with family Gender identity (if verbalized by the patient): Female Sexual Orientation (if Verbalized by the Patient): Straight or Heterosexual Spiritual care concerns: No Exam Narrative: GENERAL: mildly Ill-appearing, no acute distress. EYES: conjunctivae clear ENT: Mucous membranes moist. TM pearly abel with normal light reflex bilaterally; no tragal tenderness. Oropharynx severely erythematous Tonsils enlarged 2+ with exudate. No drooling, no hoarseness, no trismus, uvula midline. No tripod positioning, hot potato voice, or soft palate swelling. NECK: Supple. No lymphadenopathy CHEST: Clear to auscultation, breath sounds equal. No respiratory distress, speaks in full sentences. HEART: Regular rate and rhythm. No murmur heard. SKIN: Warm, dry, no rash. NEURO: Alert and oriented x3. Course Course Emergency Course: Patient is aware of diagnosis, understands and agrees to treatment plan. Anticipatory guidance given. Patient agrees to follow-up as directed and is aware of reasons to seek care at the emergency department. Portions of this record may have been created with voice recognition software Level of Care: Express Care Visit Vital Signs Vital signs: Vital Signs Temperature 98.3 F 08/05/23 19:42 Pulse Rate 117 H 08/05/23 19:42 Respiratory Rate 18 08/05/23 19:42 Blood Pressure 141/90 H 08/05/23 19:42 Pulse Oximetry 100 08/05/23 19:42 Oxygen Delivery Room Air 08/05/23 19:42 Temperature 98.3 F 08/05/23 19:42
== END 2023-08-05 20:00 | disposition home or self-care (01) ==
PROVIDERS: Emergency Provider Nurse Practitioner Family; PCP Emergency Medicine
DX: J40 Bronchitis, not specified as acute or chronic (principal); J02.9 Acute pharyngitis, unspecified; J44.9 Chronic obstructive pulmonary disease, unspecified; F17.210 Nicotine dependence, cigarettes, uncomplicated; Z79.1 Long term (current) use of non-steroidal anti-inflammatories (NSAID); Z79.899 Other long term (current) drug therapy; Z20.822 Contact with and (suspected) exposure to COVID-19
CPT/HCPCS: 87081; 87426; 87804; 87880; 99213; C9803; G0463

== ENCOUNTER 2023-12-05 19:13 | Emergency (ER) | payer OTHER, SELFPAY ==
[2023-12-05 19:22] VITALS: BP 134/79; PULSE 90; RESP 18; TEMP 36.9; O2SAT 100
--- NOTE | 2023-12-05 20:06 | ED.GENADULT ---
HPI - General Adult General Chief complaint: Upper Respiratory Infection Stated complaint: Cough/Congestion/Sore Throat Source: patient Mode of arrival: ambulatory Limitations: no limitations History of Present Illness HPI narrative: Patient presents for evaluation of sick symptoms for last 4 days. Symptoms include sore throat, headache, sinus congestion, clear rhinorrhea, nonproductive cough, and dyspnea on exertion without shortness of breath at rest.. She indicates she has a history of recurrent bronchitis. She smokes half a pack per day. Her son currently has similar sick symptoms. In the past she has responded well to oral prednisone. She has been using a [employer] product as well as an albuterol inhaler with some improvement thereafter. Related Data Home Medications Medication Instructions Recorded Confirmed medroxyprogesterone 150 mg/mL 150 mg IM [id number] 08/05/23 08/05/23 intramuscular syringe (Depo-Provera) meloxicam 15 mg tablet 15 mg PO DAILY 08/05/23 08/05/23 Allergies Allergy/AdvReac Type Severity Reaction Status Date / Time tramadol Allergy Severe Swelling Verified 08/05/23 19:46 of Lip/Tongue/Throat clindamycin Allergy Intermediate Chest Pain Verified 08/05/23 19:46 bacitracin Allergy Mild rash Verified 08/05/23 19:46 [From Neosporin ([id number])] neomycin Allergy Mild rash Verified 08/05/23 19:46 [From Neosporin ([id number])] polymyxin B Allergy Mild rash Verified 08/05/23 19:46 [From Neosporin ([id number])] Review of Systems Review of Systems: CONSTITUTIONAL: Denies fever, chills, or sweats. EYES: Denies visual changes, redness, or discharge. ENT: Reports sinus congestion, clear rhinorrhea, sore throat. CARDIOVASCULAR: Denies chest pain, palpitations, or edema. RESPIRATORY: Reports cough. Reports LINO. Denies SOB at rest GASTROINTESTINAL: Denies abdominal pain, nausea, vomiting, or diarrhea. GENITOURINARY: Denies dysuria or hematuria. SKIN: Denies rash or itching. MUSCULOSKELETAL: Denies back pain, joint pain, or myalgia. NEUROLOGIC: Denies headache, numbness, dizziness, or weakness. PSYCHIATRIC: Denies anxiety or depression. [facility] Past Medical History Medical History Anxiety Bronchitis COPD (chronic obstructive pulmonary disease) Pneumonia Tobacco use Surgical History Surgical History Previous section x3 Family History Family History Mother Family history non-contributory Social History Social History Smoking packs per day: 0.5 Smoking cigarettes per day: 10.0 Smoking status: Current every day smoker Tobacco type: cigarettes Substance use: current Substance use type: marijuana Living arrangements: with family Gender identity (if verbalized by the patient): Female Sexual Orientation (if Verbalized by the Patient): Straight or Heterosexual Spiritual care concerns: No Exam Narrative: GENERAL: Well-appearing, well-nourished, and in no acute distress. HEAD: Normocephalic, atraumatic. EYES: PERRLA and EOMI. ENT: Nares clear, no rhinorrhea or epistaxis. Mucous membranes moist. Oropharynx without tonsillar hypertrophy exudate or other lesions. Bilateral TMs pearly abel nonbulging NECK: Supple. No adenopathy or masses. No carotid bruits or JVD CHEST: Clear to auscultation. No respiratory distress. No wheezes rales or rhonchi HEART: Regular rate and rhythm. No murmur heard. Normal peripheral pulses. ABDOMEN: Soft, nontender, nondistended, normal active bowel sounds. EXTREMITIES: Normal range of motion. No edema. SKIN: Warm, dry, no rash. NEURO: No focal deficits. Alert and oriented x3. PSYCH: Normal mood and affect. Course Course Emergency Course: This is a 33-year-old female who presented for elizabeth
== END 2023-12-05 20:06 | disposition home or self-care (01) ==
PROVIDERS: Emergency Provider Nurse Practitioner; PCP Family Medicine
DX: J02.0 Streptococcal pharyngitis (principal); Z20.822 Contact with and (suspected) exposure to COVID-19; F17.210 Nicotine dependence, cigarettes, uncomplicated; F12.90 Cannabis use, unspecified, uncomplicated; J44.9 Chronic obstructive pulmonary disease, unspecified
CPT/HCPCS: 87426; 87804; 87880; 99213; G0463

== ENCOUNTER 2024-05-22 18:46 | Emergency (ER) | payer OTHER, SELFPAY ==
[2024-05-22 18:51] VITALS: BP 146/81; PULSE 93; RESP 20; TEMP 37.7; O2SAT 100
--- NOTE | 2024-05-22 18:57 | ED.EYEPROB ---
HPI - Eye Problem General Chief complaint: Eye Problems Stated complaint: Eye Problem/Facial Swelling Time Seen by Provider: 05/22/24 18:57 Source: patient Mode of arrival: ambulatory Limitations: no limitations History of Present Illness HPI Narrative: 34 yo F presents with redness and swelling to face after popping pimple to forehead 2 days ago. All systems reviewed and negative except as noted above. Related Data Home Medications Medication Instructions Recorded Confirmed meloxicam 15 mg tablet 15 mg PO DAILY 08/05/23 05/22/24 acetaminophen 300 mg-codeine 30 mg 1 tablet PO BID PRN Pain (Scale 05/22/24 05/22/24 tablet Score 4-6) cyanocobalamin (vitamin B-12) 500 500 mcg PO DAILY 05/22/24 05/22/24 mcg tablet cyclobenzaprine 5 mg tablet 5 mg PO BID PRN Muscle Spasm 05/22/24 05/22/24 medroxyprogesterone 150 mg/mL 150 mg IM [id number] 05/22/24 05/22/24 intramuscular suspension Allergies Allergy/AdvReac Type Severity Reaction Status Date / Time tramadol Allergy Severe Swelling Verified 08/05/23 19:46 of Lip/Tongue/Throat clindamycin Allergy Intermediate Chest Pain Verified 08/05/23 19:46 bacitracin Allergy Mild rash Verified 08/05/23 19:46 [From Neosporin ([id number])] neomycin Allergy Mild rash Verified 08/05/23 19:46 [From Neosporin ([id number])] polymyxin B Allergy Mild rash Verified 08/05/23 19:46 [From Neosporin ([id number])] Review of Systems Review of Systems: CONSTITUTIONAL: Denies fever, chills, or sweats. EYES: Denies visual changes, redness, or discharge. ENT: Denies rhinorrhea, congestion, sore throat, or otalgia. CARDIOVASCULAR: Denies chest pain, palpitations, or edema. RESPIRATORY: Denies cough or dyspnea. GASTROINTESTINAL: Denies abdominal pain, nausea, vomiting, or diarrhea. GENITOURINARY: Denies dysuria or hematuria. SKIN: Denies rash or itching. reports redness, swelling for forehead and around eyes after popping pimple MUSCULOSKELETAL: Denies back pain, joint pain, or myalgia. NEUROLOGIC: Denies headache, numbness, or weakness. PSYCHIATRIC: Denies anxiety or depression. All other systems reviewed are negative, except as documented in HPI. [facility] Past Medical History Medical History Anxiety Bronchitis COPD (chronic obstructive pulmonary disease) Pneumonia Tobacco use Surgical History Surgical History Previous section x3 Family History Family History Mother Family history non-contributory Social History Social History Smoking packs per day: 0.5 Smoking cigarettes per day: 10.0 Smoking status: Current every day smoker Tobacco type: cigarettes Substance use: current Substance use type: marijuana Living arrangements: with family Gender identity (if verbalized by the patient): Female Sexual Orientation (if Verbalized by the Patient): Straight or Heterosexual Spiritual care concerns: No Comments At time of signature, agree with nursing past medical, surgical, social and family history. There is no relevant family history pertinent to the presenting complaint. Exam Narrative: GENERAL: This is a well-nourished, well-developed patient, in no apparent distress. HEAD: normocephalic, atraumatic. EYES: PERRL. Sclera clear/white. Vision is grossly intact. EARS: External ears normal NOSE: External nose normal NECK: Neck supple, non-tender without lymphadenopathy, masses or thyromegaly. CARDIOVASCULAR: Regular rate and rhythm without murmurs, gallops, or rubs. RESPIRATORY: Clear to auscultation. Breath sounds equal bilaterally. No wheezes, rales, or rhonchi. SKIN: warm, Dry, intact with no suspicious lesions or rash, good texture and turgor. erythema, swelling to middle of forehead, around L eye and to soft tis
== END 2024-05-22 19:08 | disposition home or self-care (01) ==
PROVIDERS: Emergency Provider Nurse Practitioner Family; PCP Family Medicine
DX: L03.211 Cellulitis of face (principal); F17.210 Nicotine dependence, cigarettes, uncomplicated; J44.9 Chronic obstructive pulmonary disease, unspecified
CPT/HCPCS: 99213; G0463

== ENCOUNTER 2025-07-17 14:43 | Emergency (ER) | payer OTHER, SELFPAY ==
[2025-07-17 15:02] VITALS: BP 119/64; PULSE 73; RESP 18; TEMP 36.8; O2SAT 99
[2025-07-17 15:10] LABS: EDCOVIDSCREEN Negative (Negative); EDINFLUASCREEN Negative (Negative); EDINFLUBSCREEN Negative (Negative)
--- OUTSIDE RECORDS SUMMARY | 2025-07-17 16:08 | XMS_ITS | Clinical Summary ---
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 Name Role Phone ONOFRE BYRD MD Primary Care Provider [phone] Reason for Visit and Chief Complaint The Chief Complaint is: REFERRED BY DR ONOFRE BYRD FOR BACK PAIN X 1 YEAR THAT RADIATES INTO BL HIPS AND BUTTUCKS ~XR L-SPINE 2022 ~NO PT OR PAIN MANAGMENT ~SEEN ORTHO END OF MARCH, WAS GIVEN A SHOT IN MY BACK MADE IT WORSE ~TAKES MELOXICAM BUT IBUPROFEN WORKS BETTER ~IS NOT DIABETIC Plan of Treatment No Plan of Treatment Recorded Assessments Includes: Assessments from this encounter Findings - Sacroiliitis [M46.1 - Sacroiliitis, not elsewhere classified] - Last Documented On 07/02/2023 8:31AM ; [facility] - Closed compression fracture of lumbar vertebral body [S32.000A - Wedge compression fracture of unspecified lumbar vertebra, initial encounter for closed fracture] - Last Documented On 07/02/2023 8:31AM ; [facility] - Right trochanteric bursitis [M70.61 - Trochanteric bursitis, right hip] - Last Documented On 07/02/2023 8:31AM ; [facility] - Left trochanteric bursitis [M70.62 - Trochanteric bursitis, left hip] - Last Documented On 07/02/2023 8:31AM ; [facility] - Lumbar disc degeneration [M51.36 - Other intervertebral disc degeneration, lumbar region] - Last Documented On 07/02/2023 8:31AM ; [facility] - Chronic pain syndrome [G89.4 - Chronic pain syndrome] - Last Documented On 07/02/2023 8:31AM ; [facility] Medical Equipment - Implanted Devices Includes: Current Devices No Medical Equipment Recorded Medications Includes: Medications discussed during this encounter and other current Medications Discontinued / Stopped on this date on 06/24/2023 Meloxicam 15 MG Oral Tablet Provider: Diagnosis: Last Documented On 3 11:17AM By SURYA CARNES ; [facility] New / Renewed during this visit SURYA CARNES on 06/24/2023 Lidocaine 5% External Patch Provider: SURYA BLACKMON 30 day supply: 30 patch, 2 refills Diagnosis: Sacroiliitis, not elsewhere classified as directed apply patch to a ffected area for 12 hours and remove for 12 hours Pharmacy: [facility] [address] [facility], [phone] - Last Documented On 3 11:31AM By SURYA CARNES ; [facility] Diclofenac Sodium 75 MG Oral Tablet Delayed Release Provider: SURYA CARNES 30 day supply: 60 tablet, 0 refills Diagnosis: Sacroiliitis, not elsewhere classified as directed BID prn with christos dstop meloxicam Pharmacy: [facility] [address] [facility], [phone] - Last Documented On 3 11:31AM By SURYA CARNES ; [facility] Current Medications (continue as prescribed) Depo-Provera 150 MG/ML Intramuscular Suspension 2022 Provider: Diagnosis: Last Documented On 3 10:35AM By Danika PRATT ; [facility] Medications Administered Includes: Administered Medications from this encounter No Administered Medications Recorded Vital Signs Includes: Vital Signs from this encounter Vital Name 06/24/2023 10:51A Blood Pressure Sitting L 120/60 Pulse Rate-Sitting (bpm) 128 Temp-Temporal 96.6 Height (in) 64 Weight (lb) 143 Body Mass Index 24.5 Body Surface Area (m2) 1.7 Pain Level 5 Oxygen Saturation (%) 94 Last Documented: On 07/02/2023 8:27AM ; [facility] Results Includes: Results discussed during this encounter Drugs of abuse screen [facility] Ordered by SURYA CHACON BANNER on Collected: Reported: 06/24/2023 10:50 Last Documented On 3 10:51AM ; [facility] Reviewed on 06/24/2023; All test results are final unless otherwise noted. Internal QC Acceptable None Last Documented On 3 10:50AM ; [facility] Lot # & Exp. Date [id number], 2024-01-01 N (Normal) Last Documented On 3 10:50AM ; [facility] Amphetamines NEG (NEG) N (Normal) Last Documented On 3 10:50AM ; [facility] Barbiturates NEG (neg) N (Normal) Last Documented On 3 10:50AM ; [facility] Benzodiazepines NEG (neg) N (Normal) Last Documented On 3 10:50AM ; [facility] Cocaine NEG (neg) N (Normal) Last Documented On 3 10:50AM ; [facility] Ecstasy NEG (Neg) N (Normal) Last Documented On 3 10:50AM ; [facility] Methamphetamines NEG (neg) N (Normal) Last Documented On 3 10:50AM ; [facility] Methadone NEG (Neg) N (Normal) Last Documented On 3 10:50AM ; [facility] Morphine POS (Neg) A (Abnormal) Last Documented On 3 10:50AM ; [facility] Oxycodone NEG (Neg) N (Normal) Last Documented On 3 10:50AM ; [facility] Phencyclidine NEG (NEG) N (Normal) Last Documented On 3 10:50AM ; [facility] TCA/Tricyclic Antidepressants POS (neg) A (Abnormal) Last Documented On 3 10:50AM ; [facility] Cannabis POS (neg) A (Abnormal) Last Documented On 3 10:50AM ; [facility] History of Present Illness Includes: History of Present Illness from this encounter HPI - Allergy list reviewed - Problem list reviewed - Medication reconciliation performed - Medication list reviewed - Prescription Drug Monitoring Program website checked. - Last dose of medication? - Pain is continuous - Pain comes/goes - Primary pain location Lower back - Primary pain duration Somtimes constant other times comes and goes - Secondary pain duration Comes and goes - Secondary pain location Hips and legs - Pain is throbbing - Pain is dull, aching - Pain is shooting - Pain is sharp - Pain is pressure like - Pain is deep - Relieved by repositioning - Relieved by leaning forward - Pain aggravated getting in/out of car - Pain aggravated when out of chair - Pain aggravated lifting - Pain aggravated bending - Pain radiates in both feet Discussion: Patient is a 33-year-old female referred for evaluation and treatment. She describes chronic low back into lateral hips and buttock. Simple daily activities increase symptoms. Symptoms have been present for several years, worsening over the last year. She has small children at home and caring for them can be difficult due to pain. She has not done physical therapy. She does take meloxicam with some benefit. Tylenol is used as needed as well as topical analgesics in the heating pad. We discussed a treatment plan, including physical therapy and medications. She will follow-up in 6 weeks when therapy is complete Imaging: All relevant imaging available was personally reviewed with the patient today with the following tests and results noted: X-ray L spine 03/26/23: multilevel mild and moderate vertebral body compression deformity's of uncertain age. Moderate L1 and L5 wedge deformity. Mild L2 wedge deformity. Mild lumbar degenerative disc disease. Social History Description Last Updated Current smoker 06/24/2023 Last Documented On 3 8:31AM ; [facility] Difficulty walking 06/24/2023 Last Documented On 3 8:31AM ; [facility] No consumption of alcohol 06/24/2023 Last Documented On 3 8:31AM ; [facility] Not using drugs 06/24/2023 Last Documented On 3 8:31AM ; [facility] Smoking packs of cigarettes per day 1/2 pack 06/24/2023 Last Documented On 3 8:31AM ; [facility] Smoking Status Unknown Procedures and Surgical History Includes: Procedures from this encounter Procedures Code Diagnosis Performing Provider Service L ocation Service Date use of tobacco assessment performed 1000F Last Documented On 3 10:13AM ; [facility] standardized depression screening: negative for symptoms 3351F Last Documented On 3 10:58AM ; [facility] review of medications documented 1160F Last Documented On 3 10:13AM ; [facility] screening for adult depression: impressi on and score 0 Last Documented On 3 10:58AM ; [facility] Pain radiates to both sides of buttocks Last Documented On 3 10:42AM ; [facility] Clinical summary provided to patient ~ Patient understands and agrees with treatment plan. Questions answered Last Documented On 3 10:12AM ; [facility] SOAPP-R: total score 1 Last Documented On 3 10:42AM ; [facility] Surgical History Last Updated No Pacemaker 06/24/2023 Last Documented On 3 8:31AM ; [facility] Medical History Includes: Medical History addressed during this encounter Description Last Updated Injection/Nerve blocks 06/24/2023 Last Documented On 3 8:31AM ; [facility] Moderate to severe pain 06/24/2023 Last Documented On 3 8:31AM ; [facility] No Pain Pump 06/24/2023 Last Documented On 3 8:31AM ; [facility] No Spinal cord stimulator 06/24/2023 Last Documented On 3 8:31AM ; [facility] Please list all illnesses/co nditions you have been diagnosed with: Chronic lower back pain 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 06/24/2023 Last Documented On 3 8:31AM ; [facility] Please list all surgeries: April 2015 csectionSeptember 2016 csectionOctober 2018 csection 06/24/2023 Last Documented On 3 8:31AM ; [facility] X-rays 04/16/2023 06/24/20 Last Documented On 3 8:31AM ; [facility] Family History Includes: Family History addressed during this encounter Description Last Updated Maternal history of Arthritis 06/24/2023 Last Documented On 3 8:31AM ; [facility] Review of Systems Includes: Review of Systems from this encounter Systemic: No systemic symptoms other than noted. Fatigue. Head: No head symptoms other then noted. Neck: No neck pain. Otolaryngeal: No otolaryngeal symptoms other than noted. Cardiovascular: No chest pain or discomfort. Pulmonary: No dyspnea. Gastrointestinal: No nausea and no constipation. Genitourinary: No urinary loss of control. Endocrine: No endocrine symptoms other than noted. Weakness. Hematologic: No easy bleeding and no tendency for easy bruising. Musculoskeletal: No musculoskeletal symptoms other than noted. Back pain, pain localized to one or more joints, and joint stiffness localized to one or more joints. Neurological: No fainting passing out with needles or medical procedures, no motor disturbances, and no sensory disturbances. Psychological: No psychological symptoms other than noted. Skin: No skin symptoms other than noted. Mental Status Includes: Mental Status from this encounter No Mental Status Recorded Functional Status Includes: Functional Status from this encounter No Functional Status Recorded Physical Exam Includes: Physical Exam from this encounter Allergies Includes: Active Allergies Substance Type Reaction Onset Date Resolved Date Statu s traMADol HCl Allergy 06/24/2023 Active Last Documented On 3 10:58AM ; [facility] Clindamycin HCl Allergy 06/24/2023 Act katharine Last Documented On 3 10:58AM ; [facility] Encounters Encounter Provider Location Date Check-In Time Check-Out Time Diagnosis PAIN MANAGEMENT NEW CONSULT SURYA CHACON [facility] 06/24/20 23 10:42AM 11:19AM Chronic Pain Syndrome,Sacroi liitis,Bursitis Trochanteric Right,Bursitis Trochanteric Left,Interverte bral Disc Degeneration - Lumbar,Closed Fracture of Lumbar Vertebral Body Compression Insurance Includes: Active Insurance Policies Plan Name Member ID Group # Subscriber Relationship Effect katharnie Dates 1 - MEDICAID [place] [facility] [facility] [id number] WILTON Steiner Clinical Notes Includes: Clinical Notes from this encounter * Progress note Date Encounter Last Documented by 06/24/2023 PAIN MANAGEMENT NEW CONSULT Last documented on 07/02/2023; 8:31 AM, SURYA CHACON ANP-[facility]; [facility] Chief Complaint The Chief Complaint is: REFERRED BY DR ONOFRE BYRD FOR BACK PAIN X 1 YEAR THAT RADIATES INTO BL HIPS AND BUTTUCKS XR L-SPINE 2022 NO PT OR PAIN MANAGMENT SEEN ORTHO END OF MARCH, WAS GIVEN A SHOT IN MY BACK MADE IT WORSE TAKES MELOXICAM BUT IBUPROFEN WORKS BETTER IS NOT DIABETIC. History of Present Illness - Allergy list reviewed - Problem list reviewed - Medication reconciliation performed - Medication list reviewed - Prescription Drug Monitoring Program website checked. - Last dose of medication? - Pain is continuous - Pain comes/goes - Primary pain location Lower back - Primary pain duration Somtimes constant other times comes and goes - Secondary pain duration Comes and goes - Secondary pain location Hips and legs - Pain is throbbing - Pain is dull, aching - Pain is shooting - Pain is sharp - Pain is pressure like - Pain is deep - Relieved by repositioning - Relieved by leaning forward - Pain aggravated getting in/out of car - Pain aggravated when out of chair - Pain aggravated lifting - Pain aggravated bending - Pain radiates in both feet Discussion: Patient is a 33-year-old female referred for evaluation and treatment. She describes chronic low back into lateral hips and buttock. Simple daily activities increase symptoms. Symptoms have been present for several years, worsening over the last year. She has small children at home and caring for them can be difficult due to pain. She has not done physical therapy. She does take meloxicam with some benefit. Tylenol is used as needed as well as topical analgesics in the heating pad. We discussed a treatment plan, including physical therapy and medications. She will follow-up in 6 weeks when therapy is complete Imaging: All relevant imaging available was personally reviewed with the patient today with the following tests and results noted: X-ray L spine 03/26/23: multilevel mild and moderate vertebral body compression deformity's of uncertain age. Moderate L1 and L5 wedge deformity. Mild L2 wedge deformity. Mild lumbar degenerative disc disease. Test Conclusions PHQ-9 Score: 0 Date:06/24/23 BPI Score: Date: MiDAS Score: Date: SOAPP-R Score: 1 LOW Date:06/24/23 OSWESTRY Score: 32% Date:06/24/23 Past Medical/Surgical History Reported: Injection/Nerve blocks, Please list all illnesses/conditions you have been diagnosed with: Chronic lower back pain 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, and Please list all surgeries: April 2015 csectionSeptember 2016 csectionOctober 2018 csection. Medical: Moderate to severe pain. No Spinal cord stimulator and no Pain Pump. Surgical / Procedural: No Pacemaker. Tests: X-rays 04/16/2023. Current Medication - Depo-Provera 150 MG/ML Intramuscular Suspension as directed 0 days, 0 refills Social History Difficulty walking. Tobacco use: Cigarette smoking smoking packs of cigarettes per day 1/2 pack. Alcohol: No consumption of alcohol. Drug Use: Not using drugs. Allergies - Clindamycin HCl - traMADol HCl Family History Maternal: Arthritis Review Of Systems Systemic: No systemic symptoms other than noted. Fatigue. Head: No head symptoms other then noted. Neck: No neck pain. Otolaryngeal: No otolaryngeal symptoms other than noted. Cardiovascular: No chest pain or discomfort. Pulmonary: No dyspnea. Gastrointestinal: No nausea and no constipation. Genitourinary: No urinary loss of control. Endocrine: No endocrine symptoms other than noted. Weakness. Hematologic: No easy bleeding and no tendency for easy bruising. Musculoskeletal: No musculoskeletal symptoms other than noted. Back pain, pain localized to one or more joints, and joint stiffness localized to one or more joints. Neurological: No fainting passing out with needles or medical procedures, no motor disturbances, and no sensory disturbances. Psychological: No psychological symptoms other than noted. Skin: No skin symptoms other than noted. Physical Findings - Vitals taken 06/24/2023 10:51 am BP-Sitting L 120/60 mmHg Pulse Rate-Sitting 128 bpm Temp-Temporal 96.6 F Height 64 in Weight 143 lbs Body Mass Index 24.5 kg/m2 Pain Level 5 Pain Level Note LOW BACK, 6 with activity Oxygen Saturation 94 % Vital Signs: - Pain level by numeric rating scale 5-6. Musculoskeletal System: General/bilateral: Musculoskeletal Scales: Value Lumbar oswestry score 32 Psychiatric: Psychiatric: Value PHQ9 score: 0 Constitutional: Well developed. Well nourished. In no acute distress. HEENT: NC/AT. Anicteric. Clear Conjunctiva. PERRLA. MM's pink/moist. No discharge via nares. No lesions of EAC. No discharge of EAC. Neck supple. No lymphadenopathy in cervical chain bilaterally. CVS: RRR. No peripheral edema. Peripheral pulses palpable in all extremities. Pulmonary: CTA bilaterally. Normal chest expansion bilaterally. Spine/MSK: Tenderness bilateral mid to lower lumbar facet joints. Mild spinal tenderness lower lumbar spine. Tenderness bilateral SI joints. Decrease lumbar range of motion and extension and rotation bilaterally. Mildly positive facet loading bilaterally. Negative SLR. Gait: Not antalgic. No steppage gait. No Trendelenburg gait. No circumspected gait pattern. Heel walk normal. Toe walk normal. Tandem gait normal. Neuro: Awake. Alert. Oriented x3. DTR's intact in all extremities. DTR's equal in all extremities. No sensory deficit. No motor deficit. Psych: No apparent distress. Mood normal. Affect normal. No pain behaviors. Skin: No rash. Normal pigmentation. Normal temperature Tests - Test: Drugs of abuse screen Report Date: 06/24/2023 Internal QC Acceptable Lot # & Exp. Date [id number] Normal Amphetamines NEG Normal Barbiturates NEG Normal Benzodiazepines NEG Normal Cocaine NEG Normal Ecstasy NEG Normal Methamphetamines NEG Normal Methadone NEG Normal Morphine POS Abnormal Oxycodone NEG Normal Phencyclidine NEG Normal TCA/Tricyclic Antidepressants POS Abnormal Cannabis POS Abnormal Educational Testing: Questionnaires PHQ-9: Value SOAPP-R: total score 1 Assessment - Sacroiliitis [M46.1 - Sacroiliitis, not elsewhere classified] - Closed compression fracture of lumbar vertebral body [S32.000A - Wedge compression fracture of unspecified lumbar vertebra, initial encounter for closed fracture] - Right trochanteric bursitis [M70.61 - Trochanteric bursitis, right hip] - Left trochanteric bursitis [M70.62 - Trochanteric bursitis, left hip] - Lumbar disc degeneration [M51.36 - Other intervertebral disc degeneration, lumbar region] - Chronic pain syndrome [G89.4 - Chronic pain syndrome] Therapy - Pain radiates to both sides of buttocks. - Clinical summary provided to patient Patient understands and agrees with treatment plan. Questions answered. Discussed Start physical therapy. Will get MRI of the lumbar spine due to vertebral body compression fractures noted on x-ray. Would like to check for any edema within the vertebral body. Start diclofenac and lidocaine patches. Plan StartCited - Chronic pain syndrome In office procedures/*Clia Waived Labs: Urine Drug Screen EndCited StartCited - alf (current) use of opiate analgesic Lab: DRUG MONITOR, FENTANYL, SCREEN, URINE Lab: DRUG MONITORING, PANEL 6 WITH CONFIRMATION, URINE EndCited StartCited - Sacroiliitis, not elsewhere classified Therapy/Physical Therapy: Physical Therapy Instructions: Evaluate and Treat and lumbar degenerative disc disease [place] Lidocaine 5% patch as directed apply patch to affected area for 12 hours and remove for 12 hours, 30 days, 2 refills Diclofenac Sodium 75 MG tablet as directed BID prn with foodstop meloxicam, 30 days, 0 refills EndCited StartCited - Wedge compression fracture of unsp lumbar vertebra, init Radiology @ other/MRI: MRI Lumbar w/o contrast EndCited Practice Management Use of tobacco assessment performed Review of medications documented; Standardized depression screening: negative for symptoms and for adult impression and score 0. A total of [45 ] minutes were spent on this patient's evaluation, as above, with greater than 50% of this time spent in direct [id number] counseling and coordination of care. Results of this interaction were communicated directly to the patient's referring and/or primary care provider. Multiple documents have been reviewed today in conjunction with her evaluation including online prescription monitoring database, laboratory data, imaging studies, previous specialist provider notes and primary care provider notes. For all patients on acute or chronic opioids, ongoing need for opioid analgesia is assessed at each visit with consideration of discontinuation or wean to lowest effective dose when possible and appropriate. Contents of this document have been edited for correctness, but may be subject to typographical or saddle stitcher errors. Verify all diagnoses, medications, dosages, and patient instructions with patient and/or the originator of this document. Health Reminders - Assess BMI satisfied 06/24/2023. - Assess Tobacco Use satisfied 06/24/2023. - Depression Screening satisfied 06/24/2023. - Follow up plan for Depression Screening satisfied 06/24/2023.
--- OUTSIDE RECORDS SUMMARY | 2025-07-17 16:08 | XMS_ITS | Clinical Summary ---
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 Name Role Phone ONOFRE BYRD MD Primary Care Provider Reason for Visit and Chief Complaint * PHONE CALL Plan of Treatment No Plan of Treatment Recorded Assessments Includes: Assessments from this encounter No Assessments Recorded Medical Equipment - Implanted Devices Includes: Current Devices No Medical Equipment Recorded Medications Includes: Medications discussed during this encounter and other current Medications Current Medications (continue as prescribed) Depo-Provera 150 MG/ML Intramuscular Suspension 2022 Provider: Diagnosis: Last Documented On 3 10:35AM By Danika PRATT ; [facility] Lidocaine 5% External Patch 06/24/2023 Provider: SURYA BLACKMON Diagnosis: Sacroiliitis, no t elsewhere classified as directed apply patch to a ffected area for 12 hours and remove for 12 hours Last Documented On 3 11:31AM By SURYA CARNES ; [facility] Diclofenac Sodium 75 MG Oral Tablet Delayed Release 06/24/2023 Provider: SURYA CARNES Diagnosis: Sacroiliitis, no t elsewhere classified as directed BID prn with christos dstop meloxicam Last Documented On 3 11:31AM By SURYA CARNES ; [facility] Medications Administered Includes: Administered Medications from this encounter No Administered Medications Recorded Results Includes: Results discussed during this encounter No Results Recorded For Specified Dates History of Present Illness Includes: History of Present Illness from this encounter No History of Present Illness Recorded Social History No Social History Recorded - Smoking Status Unknown Medical History Includes: Medical History addressed during this encounter No Medical History Recorded Family History Includes: Family History addressed during this encounter No Family History Recorded Review of Systems Includes: Review of Systems from this encounter No Review of Systems Recorded Mental Status Includes: Mental Status from this encounter No Mental Status Recorded Functional Status Includes: Functional Status from this encounter No Functional Status Recorded Physical Exam Includes: Physical Exam from this encounter No Physical Exam Recorded Allergies Includes: Active Allergies Substance Type Reaction Onset Date Resolved Date Statu s traMADol HCl Allergy 06/24/2023 Active Last Documented On 3 10:58AM ; [facility] Clindamycin HCl Allergy 06/24/2023 Act katharine Last Documented On 3 10:58AM ; [facility] Encounters Encounter Provider Location Date Check-In Time Check-Out Time Diagnosis * PHONE CALL SURYA MCCAIN-YESENIA 08/19/2023 1:13PM 11:59PM Insurance Includes: Active Insurance Policies Plan Name Member ID Group # Subscriber Relationship Effect katharine Dates 1 - MED[employer] [place] [employer] [facility] [id number] WILTON RODRIGUEZ Self Clinical Notes Includes: Clinical Notes from this encounter No Clinical Notes Recorded
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
--- OUTSIDE RECORDS SUMMARY | 2025-07-17 16:08 | XMS_ITS ---
Author Organization [facility] Address [address] [place] [address] Phone Care Team Providers Care Electronic Publisher Name Role Phone ONOFRE BYRD MD Primary Care Provider [phone] Plan of Treatment No Plan of Treatment Recorded Assessments Includes: Assessments for all patient encounters Findings Encounter Date Closed compression fracture of lumbar vertebral body * PHONE CALL with SURYA CARNES 06/25/2023 Last Documented On 3 8:45AM ; [facility] [S32.000A - Wedge compressio n fracture of unspecified lumbar vertebra, initial encounter for closed fracture] closed compression fracture of lumbar vertebral body PAIN MANAGEMENT NEW CONSULT with SURYA MCCAIN-YESENIA 06/24/2023 Last Documented On 3 8:31AM ; [facility] Chronic pain syndrome PAIN MANAGEMENT NE W CONSULT with SURYA MCCAIN-BC 06/24/2023 Last Documented On 3 8:31AM ; [facility] Left trochanteric bursitis PAIN MANAGEME NT NEW CONSULT with SURYA MCCAIN-BC 06/24/2023 Last Documented On 3 8:31AM ; [facility] Lumbar disc degeneration PAIN MANAGEMENT NEW CONSULT with SURYA MCCAIN-BC 06/24/2023 Last Documented On 3 8:31AM ; [facility] Right trochanteric bursitis PAIN MANAGEM ENT NEW CONSULT with SURYA MCCAIN-BC 06/24/2023 Last Documented On 3 8:31AM ; [facility] Sacroiliitis PAIN MANAGEMENT NEW CONSULT with SURYA CARNES 06/24/2023 Last Documented On 3 8:31AM ; [facility] Medical Equipment - Implanted Devices Includes: Current and historical Devices No Medical Equipment Recorded Medications Includes: Current and historical Medications Current Medications (continue as prescribed) Depo-Provera 150 MG/ML Intramuscular Suspension 2022 Provider: Diagnosis: Last Documented On 3 10:35AM By Danika PRATT ; [facility] Lidocaine 5% External Patch 06/24/2023 Provider: SURYA BLACKMON Diagnosis: Sacroiliitis, no t elsewhere classified as directed apply patch to a ffected area for 12 hours and remove for 12 hours Last Documented On 3 11:31AM By SURYA CARNES ; [facility] Diclofenac Sodium 75 MG Oral Tablet Delayed Release 06/24/2023 Provider: SURYA CARNES Diagnosis: Sacroiliitis, no t elsewhere classified as directed BID prn with christos dstop meloxicam Last Documented On 3 11:31AM By SURYA CARNES ; [facility] Past Medications on file Meloxicam 15 MG Oral Tablet 06/24/2023 - 06/24/2023 Pr ovider: Diagnosis: Last Documented On 3 11:17AM By SURYA CARNES ; [facility] Medications Administered Includes: Administered Medications in patient's chart No Administered Medications Recorded Results Includes: Results from 07/17/2024 through 07/17/2025 No Results Recorded For Specified Dates History of Present Illness History of Present Illness not supported for this document type No History of Present Illness Recorded Social History Description Last Updated Current smoker 06/24/2023 Last Documented On 3 8:31AM ; [facility] Difficulty walking 06/24/2023 Last Documented On 3 8:31AM ; [facility] No consumption of alcohol 06/24/2023 Last Documented On 3 8:31AM ; [facility] Not using drugs 06/24/2023 Last Documented On 3 8:31AM ; [facility] Smoking packs of cigarettes per day 1/2 pack 06/24/2023 Last Documented On 3 8:31AM ; [facility] Smoking Status Unknown Procedures and Surgical History Surgical History Last Updated No Pacemaker 06/24/2023 Last Documented On 3 8:31AM ; [facility] Medical History Includes: Medical History in patient's chart Description Last Updated Injection/Nerve blocks 06/24/2023 Last Documented On 3 8:31AM ; [facility] Moderate to severe pain 06/24/2023 Last Documented On 3 8:31AM ; [facility] No Pain Pump 06/24/2023 Last Documented On 3 8:31AM ; [facility] No Spinal cord stimulator 06/24/2023 Last Documented On 3 8:31AM ; [facility] Please list all illnesses/co nditions you have been diagnosed with: Chronic lower back pain 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 06/24/2023 Last Documented On 3 8:31AM ; [facility] Please list all surgeries: S eptember 2014 csectionSeptember 2016 csectionOctober 2019 csection 06/24/2023 Last Documented On 3 8:31AM ; [facility] X-rays 04/16/2023 06/24/20 Last Documented On 3 8:31AM ; [facility] Family History Includes: Family History in patient's chart Description Last Updated Maternal history of Arthritis 06/24/2023 Last Documented On 3 8:31AM ; [facility] Review of Systems Review of Systems not supported for this document type No Review of Systems Recorded Mental Status No Mental Status Recorded Functional Status No Functional Status Recorded Physical Exam Physical Exam not supported for this document type No Physical Exam Recorded Allergies Includes: Active, inactive, and resolved Allergies Substance Type Reaction Onset Date Resolved Date Statu s traMADol HCl Allergy 06/24/2023 Active Last Documented On 3 10:58AM ; [facility] Clindamycin HCl Allergy 06/24/2023 Act katharine Last Documented On 3 10:58AM ; [facility] Insurance Includes: Active Insurance Policies Plan Name Member ID Group # Subscriber Relationship Effect katharine Dates 1 - [employer] [place] [employer] [id number] WILTON Steiner Clinical Notes Includes: Signed Clinical Notes starting from 09/04/2022 No Clinical Notes Recorded
--- OUTSIDE RECORDS SUMMARY | 2025-07-17 16:08 | XMS_ITS ---
Care Plan - [facility] Created on: July 17, 2025 WILTON RODRIGUEZ : 1990 Sex: Female Author Organization [facility] Address [address] [place] [address] Phone Care Team Providers Care Plasma Processing Centrifuge Operator Name Role Phone CARSON CORNELIUS, ONOFRE Hughes Primary Care Provider [phone]
--- OUTSIDE RECORDS SUMMARY | 2025-07-17 16:08 | XMS_ITS | Clinical Summary ---
Author Organization [facility] Address [address] [place] [address] Care Team Providers Care Eyeletter Name Role Phone Josue Vargas MD Primary Care Provider [phone] Ryan Bustos MD Unavailable [phone] Allergies Active Allergy Reactions Criticality Noted Date Comments Clindamycin Other (See comments),Chest tightness Medium 04/25/2019 Chest tightness/pain Tramadol Swelling Medium 05/23/2019 Medications albuterol HFA (PROVENTIL HFA,VENTOLIN HFA,PROAIR HFA) 90 mcg/actuation inhaler INHALE 2 PUFFS 4 TIMES A DAY NEEDED FOR SHORTNESS OF BREATH OR FOR WHEEZE 03/07/20 23 Active medroxyPROGEST ERone 150 mg/mL injection INJECT 1 ML INTRAMUSCULARLY EVERY 3 MONTHS DIRECTED 03/22/20 23 Active meloxicam (MOBIC) 15 mg tabletIndicati ons:Chronic bilateral low back pain without sciatica TAKE HALF OF A TABLET BY MOUTH TWICE DAILY 30 tablet 1 06/14/20 23 Active cyclobenzaprin e (FLEXERIL) 10 mg tabletIndicati ons:Chronic bilateral low back pain without sciatica Take 1 tablet (10 mg total) by mouth 3 (three) times a day as needed for muscle spasms 30 tablet 07/15/20 23 Active acetaminophen- codeine (TYLENOL with CODEINE #3) 300-30 mg per tablet Take 1 tablet by mouth every 4 (four) hours as needed for pain Active multivitamin with iron tablet Take 1 tablet by mouth daily Active ibuprofen (ADVIL,MOTRIN) 600 mg tablet Take 1 tablet (600 mg total) by mouth every 6 (six) hours as needed for pain (pain) 20 tablet 11/18/19 24 Active Active Problems Problem Noted Date Diagnosed Date Low grade squamous intraepit helial lesion on cytologic smear of cervix (LGSIL) 10/15/2023 Immunizations Immunization Administration Dates Next Due Influenza, Quadrivalent, Spl it, Preservative Free, Intramuscular 05/25/2019 MMR 05/25/2019(Deferred: No longer needed - pt is rubella immune) Surgical History Surgery Date Site/Laterality Comments SECTION Medical History Medical History Date Comments History of vertebral compression fracture, L1, L 2, L5 2004 DDD (degenerative disc disease), lumbar Lumbar facet arthropathy Levoscoliosis of lumbar spine Lumbar facet arthropathy Anxiety No family history of adverse response to anesthe caridad Family History Medical History Relation Name Comments No Known Problems Father Cancer Mother Relation Name Status Comments Father Alive Mother Social History Tobacco Use Types Packs/Day Years Used Date Smoking Tobacco: Every Day Cigarettes Smokeless Tobacco: Never Tobacco Cessation:Ready to Q uit: No; Counseling Given: Yes AUDIT-C Answer Date Recorded Frequency of Alcohol Consumption Not on file 11/11/2023 Q2: How many drinks containi ng alcohol do you have on a typical day when you are drinking? Patient does not drink Frequency of Binge Drinking Not on file 10/15 Personal Safety Answer Date Recorded Have you ever been in or are you currently in a harmful physical or emotional relationship or is someone making you feel afraid or unsafe? 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 Not on file Not on file Not on file Obstetrics History Para Term AB IAB SAB Ectopic Multiple Livin g Live Births 4 3 3 1 0 3 3 Date Outcome GA Total Labor Labor/2nd/3rd Weight Sex Type Anes PTL Olga A1 A5 Name Clin 2007 AB 2014 Term 39w 4d 3.685 kg (8 lb 2 oz) M CS-LT ranv Spinal N Livin g Ankush 2016 Term 39w 1d 2.665 kg (5 lb 14 oz) F Spinal N Livin g Penelo pe Complications:None 10/08/ 2019 Term 39w 5d 0h 02m 0h 02m 3.34 kg (7 lb 5.8 oz) M CS-LT ranv Spinal N Angi fragoso 9 9 NANCY YODER Geoff rey Lowel l, MD Delivery Location:This [facility] ([facility]) Last Filed Vital Signs Vital Sign Reading Time Taken Comments Blood Pressure 142/87 11/18/2023 10:37 AM CDT Pulse 95 11/18/2023 10:37 AM CDT Temperature 36.9 C (98.4 F) 11/18/2023 10:37 AM CDT Respiratory Rate 18 11/18/2023 10:3 7 AM CDT Oxygen Saturation 98% 11/18/2023 10: 37 AM CDT Inhaled Oxygen Concentration - - Weight 63.8 kg (140 lb 10.5 oz) 11/18/2023 7:31 AM CDT Height 167.6 cm (5' 6) 11/18/2023 7:31 AM CDT Body Mass Index 22.7 11/18/2023 7:31 AM CDT Plan of Treatment Health Maintenance Due Date Last Done Comments Cervical Cancer Screening 1989 Depression Screening 1989 Hepatitis C Screening 1989 Varicella Vaccines (1 of 2 - 13+ 2-dose series) 2002 Hepatitis B Screening 2007 Regular Well Visit/Exam 18-64 2007 Pneumococcal vaccine <65 (1 of 2 - PCV) 2008 HPV Vaccines (1 - 3-dose SCD M series) 2016 Influenza Vaccine (#1) 2025 05/25/2019 DTaP/Tdap/Td Vaccine (5 - Td or Tdap) 04/11/2029 04/11/2019, 03/26/2017, 04/18/2015, Additional history exists Insurance [facility] Advance Directives For more information, please contact: [phone] * Full Code (Latest Code Status on File) Date Activated Date Inactivated Comments 05/23/2019 9:34 AM 05/25/2019 2:00 PM * Full Code Date Activated Date Inactivated Comments 05/23/2019 5:48 AM 05/23/2019 9:34 AM Full CPR in case of cardiopulmonary arrest Care Teams Eyeletter Relationship Specialty Start Date End Date Josue Vargas MD PCP - General Emergency Medicine 04/12/23 Ryan Bustos MD [address] [place] [address] DR MORENITA Reis [place] [address] [place] [address] Consulting Physician Obstetrics and Gynecology 11/18/23
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
--- OUTSIDE RECORDS SUMMARY | 2025-07-17 16:12 | XMS_ITS | Clinical Summary ---
Author Organization [facility] Address [address] [place] [address] Phone Care Team Providers Care Ems Coordinator Name Role Phone ONOFRE BYRD MD Primary [...] 3 10:35AM By Danika PRATT ; [facility] Lidocaine 5% External Patch 06/24/2023 Provider: SURYA BLACKMON Diagnosis: Sacroiliitis, no t elsewhere classified as directed apply patch to a ffected area for 12 hours and remove for 12 hours Last Documented On 3 11:31AM By SURYA CARNES ; [facility] Diclofenac Sodium 75 MG Oral Tablet Delayed Release 06/24/2023 Provider: SURYA CARNES Diagnosis: Sacroiliitis, no t elsewhere classified as directed BID prn with christos dstop meloxicam Last Documented On 3 11:31AM By SURYA CARNES ; [facility] Medications Administered Includes: Administered [...] Active Last Documented On 3 10:58AM ; [facility] Clindamycin HCl Allergy 06/24/2023 Act katharine Last Documented On 3 10:58AM ; [facility] Encounters Encounter Provider Location Date Check-In Time Check-Out Time Diagnosis * PHONE CALL SURYA MCCAIN-YESENIA 08/19/2023 1:13PM 11:59PM Insurance Includes: Active Insurance Policies Plan Name Member ID Group # Subscriber Relationship Effect katharine Dates 1 - [employer] [place] [facility] [id number] WILTON RODRIGUEZ Self Clinical Notes Includes: Clinical Notes from this encounter No Clinical Notes Recorded
--- OUTSIDE RECORDS SUMMARY | 2025-07-17 16:12 | XMS_ITS ---
Author Organization [facility] Address [address] [place] [address] Phone Care Team Providers Care Warehouse Manager Name Role Phone ONOFRE BYRD MD Primary Care Provider [phone] Plan of Treatment No Plan of Treatment Recorded Assessments Includes: Assessments for all patient encounters Findings Encounter Date Closed compression fracture of lumbar vertebral body * PHONE CALL with USRYA CARNES 06/25/2023 Last Documented On 3 8:45AM ; [facility] [S32.000A - Wedge compressio n fracture of unspecified lumbar vertebra, initial encounter for closed fracture] closed compression fracture of lumbar vertebral body PAIN MANAGEMENT NEW CONSULT with SURYA MCCAIN-YESENIA 06/24/2023 Last Documented On 3 8:31AM ; [facility] Chronic pain syndrome PAIN MANAGEMENT NE W CONSULT with SURYA MCCAIN-BC 06/24/2023 Last Documented On 3 8:31AM ; [facility] Left trochanteric bursitis PAIN MANAGEME NT NEW CONSULT with SURYA MCCAIN-BC 06/24/2023 Last Documented On 3 8:31AM ; [facility] Lumbar disc degeneration PAIN MANAGEMENT NEW CONSULT with SURYA MCCAIN-BC 06/24/2023 Last Documented On 3 8:31AM ; [facility] Right trochanteric bursitis PAIN MANAGEM ENT NEW CONSULT with SURYA MCCAIN-BC 06/24/2023 Last Documented On 3 8:31AM ; [facility] Sacroiliitis PAIN MANAGEMENT NEW CONSULT with SURYA CARNES 06/24/2023 Last Documented On 3 8:31AM ; [facility] Medical Equipment - Implanted Devices Includes: Current and historical Devices No Medical Equipment Recorded Medications Includes: Current and historical Medications Current Medications (continue as prescribed) Depo-Provera 150 MG/ML Intramuscular Suspension 2022 Provider: Diagnosis: Last Documented On 3 10:35AM By Danika PRATT ; [facility] Lidocaine 5% External Patch 06/24/2023 Provider: SURYA BLACKMON Diagnosis: Sacroiliitis, no t elsewhere classified as directed apply patch to a ffected area for 12 hours and remove for 12 hours Last Documented On 3 11:31AM By SURYA CARNES ; [facility] Diclofenac Sodium 75 MG Oral Tablet Delayed Release 06/24/2023 Provider: SURYA CARNES Diagnosis: Sacroiliitis, no t elsewhere classified as directed BID prn with christos dstop meloxicam Last Documented On 3 11:31AM By SURYA CARNES ; [facility] Past Medications on file Meloxicam 15 MG Oral Tablet 06/24/2023 - 06/24/2023 Pr ovider: Diagnosis: Last Documented On 3 11:17AM By SURYA CARNES ; [facility] Medications Administered Includes: Administered Medications in patient's chart No Administered Medications Recorded Results Includes: Results from 07/17/2024 through 07/17/2025 No Results Recorded For Specified Dates History of Present Illness History of Present Illness not supported for this document type No History of Present Illness Recorded Social History Description Last Updated Current smoker 06/24/2023 Last Documented On 3 8:31AM ; [facility] Difficulty walking 06/24/2023 Last Documented On 3 8:31AM ; [facility] No consumption of alcohol 06/24/2023 Last Documented On 3 8:31AM ; [facility] Not using drugs 06/24/2023 Last Documented On 3 8:31AM ; [facility] Smoking packs of cigarettes per day 1/2 pack 06/24/2023 Last Documented On 3 8:31AM ; [facility] Smoking Status Unknown Procedures and Surgical History Surgical History Last Updated No Pacemaker 06/24/2023 Last Documented On 3 8:31AM ; [facility] Medical History Includes: Medical History in patient's chart Description Last Updated Injection/Nerve blocks 06/24/2023 Last Documented On 3 8:31AM ; [facility] Moderate to severe pain 06/24/2023 Last Documented On 3 8:31AM ; [facility] No Pain Pump 06/24/2023 Last Documented On 3 8:31AM ; [facility] No Spinal cord stimulator 06/24/2023 Last Documented On 3 8:31AM ; [facility] Please list all illnesses/co nditions you have been diagnosed with: Chronic lower back pain 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 06/24/2023 Last Documented On 3 8:31AM ; [facility] Please list all surgeries: S eptember 2014 csectionSeptember 2016 csectionOctober 2019 csection 06/24/2023 Last Documented On 3 8:31AM ; [facility] X-rays 04/16/2023 06/24/20 Last Documented On 3 8:31AM ; [facility] Family History Includes: Family History in patient's chart Description Last Updated Maternal history of Arthritis 06/24/2023 Last Documented On 3 8:31AM ; [facility] Review of Systems Review of Systems not [...] Active Last Documented On 3 10:58AM ; [facility] Clindamycin HCl Allergy 06/24/2023 Act katharine Last Documented On 3 10:58AM ; [facility] Insurance Includes: Active Insurance Policies Plan Name Member ID Group # Subscriber Relationship Effect katharine Dates 1 - [employer] [place] [facility] [id number] WILTON Steiner Clinical Notes Includes: Signed Clinical Notes starting from 09/04/2022 No Clinical Notes Recorded
--- OUTSIDE RECORDS SUMMARY | 2025-07-17 16:12 | XMS_ITS | Clinical Summary ---
Author Organization [facility] Address [address] [place] [address] Phone Care Team Providers Care Correspondence Clerk Name Role Phone ONOFRE BYRD MD Primary Care Provider Reason for Visit and Chief Complaint * PHONE CALL Plan of Treatment No Plan of Treatment Recorded Assessments Includes: Assessments from this encounter Findings - Closed compression fracture of lumbar vertebral body [S32.000A - Wedge compression fracture of unspecified lumbar vertebra, initial encounter for closed fracture] - Last Documented On 06/28/2023 8:45AM ; [facility] Medical Equipment - Implanted Devices Includes: Current Devices No Medical Equipment Recorded Medications Includes: Medications discussed during this encounter and other current Medications Current Medications (continue as prescribed) Depo-Provera 150 MG/ML Intramuscular Suspension 2022 Provider: Diagnosis: Last Documented On 3 10:35AM By Danika PRATT ; [facility] Lidocaine 5% External Patch 06/24/2023 Provider: SURYA BLACKMON Diagnosis: Sacroiliitis, no t elsewhere classified as directed apply patch to a ffected area for 12 hours and remove for 12 hours Last Documented On 3 11:31AM By SURYA CARNES ; [facility] Diclofenac Sodium 75 MG Oral Tablet Delayed Release 06/24/2023 Provider: SURYA CARNES Diagnosis: Sacroiliitis, no t elsewhere classified as directed BID prn with christos dstop meloxicam Last Documented On 3 11:31AM By SURYA CARNES ; [facility] Medications Administered Includes: Administered Medications [...] Active Last Documented On 3 10:58AM ; [facility] Clindamycin HCl Allergy 06/24/2023 Act katharine Last Documented On 3 10:58AM ; [facility] Encounters Encounter Provider Location Date Check-In Time Check- Out Time Diagnosis * PHONE CALL SURYA CARNES 3 9:23AM 11:59PM Closed Fracture of Lumbar Vertebral Body Compression Insurance Includes: Active Insurance Policies Plan Name Member ID Group # Subscriber Relationship Effect katharine Dates 1 - [employer] [place] [facility] [id number] WILTON RODRIGUEZ Self Clinical Notes Includes: Clinical Notes from this encounter * Progress note Date Encounter Last Documented by 06/25/2023 * PHONE CALL Last documented on 08/17/2023; 3:12 PM, SURYA CARNES; [facility] Chief Complaint Phone Call - Chief [...] up with. pt phone # for return call:[phone] date/initials:06/25/23 CB 3:38 p.m., pt states I [...]
--- OUTSIDE RECORDS SUMMARY | 2025-07-17 16:13 | XMS_ITS ---
Care Plan - [facility] Created on: July 17, 2025 WILTON RODRIGUEZ : 1990 Sex: Female Author Organization [facility] Address [address] [place] [address] Phone Care Team Providers Care Belt And Link Assembly Supervisor Name Role Phone CARSON CORNELIUS, ONOFRE Hughes Primary Care Provider [phone]
--- OUTSIDE RECORDS SUMMARY | 2025-07-17 16:13 | XMS_ITS | Clinical Summary ---
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 Name Role Phone ONOFRE BYRD MD Primary Care Provider [phone] Reason for Visit and Chief Complaint The [...] - Last Documented On 07/02/2023 8:31AM ; [facility] - Closed compression fracture of lumbar vertebral body [S32.000A - Wedge compression fracture of unspecified lumbar vertebra, initial encounter for closed fracture] - Last Documented On 07/02/2023 8:31AM ; [facility] - Right trochanteric bursitis [M70.61 - Trochanteric bursitis, right hip] - Last Documented On 07/02/2023 8:31AM ; [facility] - Left trochanteric bursitis [M70.62 - Trochanteric bursitis, left hip] - Last Documented On 07/02/2023 8:31AM ; [facility] - Lumbar disc degeneration [M51.36 - Other intervertebral disc degeneration, lumbar region] - Last Documented On 07/02/2023 8:31AM ; [facility] - Chronic pain syndrome [G89.4 - Chronic pain syndrome] - Last Documented On 07/02/2023 8:31AM ; [facility] Medical Equipment - Implanted Devices Includes: Current Devices No Medical Equipment Recorded Medications Includes: Medications discussed during this encounter and other current Medications Discontinued / Stopped on this date on 06/24/2023 Meloxicam 15 MG Oral Tablet Provider: Diagnosis: Last Documented On 3 11:17AM By SURYA CARNES ; [facility] New / Renewed during this visit SURYA CARNES on 06/24/2023 Lidocaine 5% External Patch Provider: SURYA BLACKMON 30 day supply: 30 patch, 2 refills Diagnosis: Sacroiliitis, not elsewhere classified as directed apply patch to a ffected area for 12 hours and remove for 12 hours Pharmacy: [facility] [address] [facility], [phone] - Last Documented On 3 11:31AM By SURYA CARNES ; [facility] Diclofenac Sodium 75 MG Oral Tablet Delayed Release Provider: SURYA CARNES 30 day supply: 60 tablet, 0 refills Diagnosis: Sacroiliitis, not elsewhere classified as directed BID prn with christos dstop meloxicam Pharmacy: [facility] [address] [facility], [phone] - Last Documented On 3 11:31AM By SURYA CARNES ; [facility] Current Medications (continue as prescribed) Depo-Provera 150 MG/ML Intramuscular Suspension 2022 Provider: Diagnosis: Last Documented On 3 10:35AM By Danika PRATT ; [facility] Medications Administered Includes: Administered [...] 94 Last Documented: On 07/02/2023 8:27AM ; [facility] Results Includes: Results discussed during this encounter Drugs of abuse screen [facility] Ordered by SURYA CHACON [facility] on Collected: Reported: 06/24/2023 10:50 Last Documented On 3 10:51AM ; [facility] Reviewed on 06/24/2023; All test results are final unless otherwise noted. Internal QC Acceptable None Last Documented On 3 10:50AM ; [facility] Lot # & Exp. Date [id number], 2024-01-01 N (Normal) Last Documented On 3 10:50AM ; [facility] Amphetamines NEG (NEG) N (Normal) Last Documented On 3 10:50AM ; [facility] Barbiturates NEG (neg) N (Normal) Last Documented On 3 10:50AM ; [facility] Benzodiazepines NEG (neg) N (Normal) Last Documented On 3 10:50AM ; [facility] Cocaine NEG (neg) N (Normal) Last Documented On 3 10:50AM ; [facility] Ecstasy NEG (Neg) N (Normal) Last Documented On 3 10:50AM ; [facility] Methamphetamines NEG (neg) N (Normal) Last Documented On 3 10:50AM ; [facility] Methadone NEG (Neg) N (Normal) Last Documented On 3 10:50AM ; [facility] Morphine POS (Neg) A (Abnormal) Last Documented On 3 10:50AM ; [facility] Oxycodone NEG (Neg) N (Normal) Last Documented On 3 10:50AM ; [facility] Phencyclidine NEG (NEG) N (Normal) Last Documented On 3 10:50AM ; [facility] TCA/Tricyclic Antidepressants POS (neg) A (Abnormal) Last Documented On 3 10:50AM ; [facility] Cannabis POS (neg) A (Abnormal) Last Documented On 3 10:50AM ; [facility] History of Present Illness [...] 06/24/2023 Last Documented On 3 8:31AM ; [facility] Difficulty walking 06/24/2023 Last Documented On 3 8:31AM ; [facility] No consumption of alcohol 06/24/2023 Last Documented On 3 8:31AM ; [facility] Not using drugs 06/24/2023 Last Documented On 3 8:31AM ; [facility] Smoking packs of cigarettes per day 1/2 pack 06/24/2023 Last Documented On 3 8:31AM ; [facility] Smoking Status Unknown Procedures and Surgical History Includes: Procedures from this encounter Procedures Code Diagnosis Performing Provider Service L ocation Service Date use of tobacco assessment performed 1000F Last Documented On 3 10:13AM ; [facility] standardized depression screening: negative for symptoms 3351F Last Documented On 3 10:58AM ; [facility] review of medications documented 1160F Last Documented On 3 10:13AM ; [facility] screening for adult depression: impressi on and score 0 Last Documented On 3 10:58AM ; [facility] Pain radiates to both sides of buttocks Last Documented On 3 10:42AM ; [facility] Clinical summary provided to patient ~ Patient understands and agrees with treatment plan. Questions answered Last Documented On 3 10:12AM ; [facility] SOAPP-R: total score 1 Last Documented On 3 10:42AM ; [facility] Surgical History Last Updated No Pacemaker 06/24/2023 Last Documented On 3 8:31AM ; [facility] Medical History Includes: Medical History addressed during this encounter Description Last Updated Injection/Nerve blocks 06/24/2023 Last Documented On 3 8:31AM ; [facility] Moderate to severe pain 06/24/2023 Last Documented On 3 8:31AM ; [facility] No Pain Pump 06/24/2023 Last Documented On 3 8:31AM ; [facility] No Spinal cord stimulator 06/24/2023 Last Documented On 3 8:31AM ; [facility] Please list all illnesses/co nditions you have been diagnosed with: Chronic lower back pain 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 06/24/2023 Last Documented On 3 8:31AM ; [facility] Please list all surgeries: April 2015 csectionSeptember 2016 csectionOctober 2018 csection 06/24/2023 Last Documented On 3 8:31AM ; [facility] X-rays 04/16/2023 06/24/20 Last Documented On 3 8:31AM ; [facility] Family History Includes: Family History addressed during this encounter Description Last Updated Maternal history of Arthritis 06/24/2023 Last Documented On 3 8:31AM ; [facility] Review of Systems Includes: Review of Systems [...] Active Last Documented On 3 10:58AM ; [facility] Clindamycin HCl Allergy 06/24/2023 Act katharine Last Documented On 3 10:58AM ; [facility] Encounters Encounter Provider Location Date Check-In Time Check-Out Time Diagnosis PAIN MANAGEMENT NEW CONSULT SURYA CHACON [facility] 06/24/20 23 10:42AM 11:19AM Chronic Pain Syndrome,Sacroi liitis,Bursitis Trochanteric Right,Bursitis Trochanteric Left,Interverte bral Disc Degeneration - Lumbar,Closed Fracture of Lumbar Vertebral Body Compression Insurance Includes: Active Insurance Policies Plan Name Member ID Group # Subscriber Relationship Effect katharine Dates 1 - MEDICAID [place] [facility] [id number] WILTON Steiner Clinical Notes Includes: Clinical Notes from this encounter * Progress note Date Encounter Last Documented by 06/24/2023 PAIN MANAGEMENT NEW CONSULT Last documented on 07/02/2023; 8:31 AM, SURYA CHACON [facility]; [facility] Chief Complaint The Chief [...] QC Acceptable Lot # & Exp. Date [id number] Normal Amphetamines NEG Normal Barbiturates NEG Normal [...] Labs: Urine Drug Screen EndCited StartCited - custodial (current) use of opiate analgesic Lab: DRUG MONITOR, F[place]ANY[place], SCREEN, URINE Lab: DRUG MONITORING, PANEL 6 WITH CONFIRMATION, URINE EndCited StartCited - Sacroiliitis, not elsewhere classified Therapy/Physical Therapy: Physical Therapy Instructions: Evaluate and Treat and lumbar degenerative disc disease [place] Lidocaine 5% patch as directed apply patch [...] 50% of this time spent in direct [id number] counseling and coordination of care. Results of [...] but may be subject to typographical or laundry operator wash room errors. Verify all diagnoses, medications, dosages, and patient instructions with patient and/or the originator of this document. Health Reminders - Assess BMI satisfied 06/24/2023. - Assess Tobacco Use satisfied 06/24/2023. - Depression Screening satisfied 06/24/2023. - Follow up plan for Depression Screening satisfied 06/24/2023.
--- NOTE | 2025-07-17 16:25 | ED.GENADULT ---
HPI - General Adult General Chief complaint: Upper Respiratory Infection Stated complaint: Eye Problem/Nasal Congestion/Body Aches Source: patient Mode of arrival: ambulatory Limitations: no limitations History of Present Illness HPI narrative: Patient presents for evaluation of sick symptoms. Symptom onset yesterday. She reports headache, generalized body aches, cough, and scratchy throat. She denies any nausea, vomiting or diarrhea. She smokes 1/2 ppd. She was recently exposed to the flu by a family member. She is concerned she may now have the flu. She also reports a stye to upper right eyelid. No visual disturbance. She wears glasses but not contacts. She has been applying warm compresses without much improvement. Related Data Home Medications ?Medication ?Instructions ?Recorded ?Confirmed ?Last Taken ?Type cyanocobalamin (vitamin B-12) 500 500 mcg PO DAILY 05/22/24 05/22/24 Unknown History mcg tablet cyclobenzaprine 5 mg tablet 5 mg PO BID PRN Muscle Spasm 05/22/24 05/22/24 Unknown History medroxyprogesterone 150 mg/mL 150 mg IM [id number] 05/22/24 05/22/24 Unknown History intramuscular suspension albuterol sulfate 90 mcg/actuation inhalation 07/17/25 Unknown History aerosol inhaler hydrocodone 5 mg-acetaminophen 325 tablet 07/17/25 Unknown History mg tablet metoprolol succinate 25 mg mg PO 07/17/25 Unknown History tablet,extended release 24 hr Allergies Allergy/AdvReac Type Severity Reaction Status Date / Time tramadol Allergy Severe Swelling Verified 07/17/25 15:06 of Lip/Tongue/Throat bacitracin (From Neosporin Allergy Mild rash Verified 07/17/25 15:06 ([id number])) neomycin (From Neosporin Allergy Mild rash Verified 07/17/25 15:06 ([id number])) polymyxin B (From Neosporin Allergy Mild rash Verified 07/17/25 15:06 ([id number])) clindamycin AdvReac Intermediate Chest Pain Verified 07/17/25 15:06 Review of Systems Review of Systems: CONSTITUTIONAL: Denies fever, chills, or sweats. EYES: reports swelling and redness to the right upper eyelid. denies visual disturbance ENT: reports scratchy throat. Denies sore throat and otalgia. CARDIOVASCULAR: Denies chest pain, palpitations, or edema. RESPIRATORY: Reports cough. Denies shortness of breath. GASTROINTESTINAL: Denies abdominal pain, nausea, vomiting, or diarrhea. GENITOURINARY: Denies dysuria or hematuria. SKIN: Denies rash or itching. MUSCULOSKELETAL: Reports generalized body aches NEUROLOGIC: Reports headache. Denies numbness, dizziness, or weakness. PSYCHIATRIC: Denies anxiety or depression. [facility] Past Medical History Medical History COPD (chronic obstructive pulmonary disease) Pneumonia Anxiety Tobacco use Bronchitis Surgical History Surgical History Previous section x3 Family History Family History Mother Family history non-contributory Social History Social History Smoking packs per day: 0.5 Smoking cigarettes per day: 10.0 Smoking status: Current every day smoker Tobacco type: cigarettes Substance use: current Substance use type: marijuana Living arrangements: with family Gender identity (if verbalized by the patient): Female Sexual Orientation (if Verbalized by the Patient): Straight or Heterosexual Spiritual care concerns: No Exam Narrative: GENERAL: Well-appearing, well-nourished, and in no acute distress. HEAD: Normocephalic, atraumatic. EYES: PERRLA and EOMI. there is a small amount of erythema with a pustule to the right upper eyelid ENT: Nares clear, no rhinorrhea or epistaxis. Mucous membranes moist. Oropharynx without tonsillar hypertrophy exudate or other lesions. Bilateral TMs pearly abel nonbulging NECK: Supple. No adenopathy or masses. No carotid bruits or JVD CHEST: Clear to auscultation. No respiratory distress. No wheezes rales or rhonchi HEART: Regular rate and rhythm. No murmur heard. Normal peripheral pulses. ABDOMEN: Soft, nontender, nondistended, normal active bowel sounds. EXTREMITIES: Normal range of motion. No edema. SKIN: Warm, dry, no rash. NEURO: No focal deficits. Alert and oriented x3. PSYCH: Normal mood and affect. Course Course Emergency Course: this is a 35-year-old female who presented for evaluation of sick symptoms. COVID and influenza negative. Discussed incubation period and that she may me to early to test positive for flu. Through shared decision making opted to proceed with Tamiflu that she will only take if her symptoms worsen. In the past, Tessalon has been effective. Agreed to script for that. She is already using warm compresses and stye not improved. Will start erythromycin. Follow up with primary provider. Go to the ER for worsening symptoms. Pt in agreement with plan of care. Level of Care: Express Care Visit Vital Signs Vital signs: Vital Signs Temperature 36.8 C 07/17/25 15:02 Pulse Rate 73 07/17/25 15:02 Respiratory Rate 18 07/17/25 15:02 Blood Pressure 119/64 07/17/25 15:02 Pulse Oximetry 99 07/17/25 15:02 Oxygen Delivery Room Air 07/17/25 15:02 Temperature 36.8 C 07/17/25 15:02 Pulse Rate 73 07/17/25 15:02 Respiratory Rate 18 07/17/25 15:02 Blood Pressure 119/64 07/17/25 15:02 Pulse Oximetry 99 07/17/25 15:02 Oxygen Delivery Room Air 07/17/25 15:02 MDM Differential Diagnosis Differential Diagnosis: Flu versus COVID versus other acute viral syndrome versus other hordeolum vs folliculitis vs chalazion vs other Lab Data Labs: Lab Results 07/17/25 Range/Units 15:08 POC Influenza A Ag Negative (Negative) POC Influenza B Ag Negative (Negative) POC SARS CoV-2 Ag Negative (Negative) Discharge Plan Discharge Clinical Impression: Acute viral syndrome Hordeolum external Qualifiers: Laterality: right Eyelid: upper Qualified Code(s): H00.011 - Hordeolum externum right upper eyelid Patient Disposition: Home Condition: Stable Instructions: Antibiotic Form, Stye (ED), Viral Syndrome (ED) Additional Instructions: PLEASE ONLY START TAMIFLU IF YOUR SYMPTOMS WORSEN Patient Language: Beninese Prescriptions: New erythromycin 5 mg/gram (0.5 %) ointment 0.5 inch EACH EYE QID Qty: 3.5 0RF benzonatate 200 mg capsule 200 mg PO TID PRN (Reason: cough) Qty: 30 0RF oseltamivir [Tamiflu] 75 mg capsule 75 mg PO Q12H 5 Days Qty: 10 0RF No Action medroxyprogesterone 150 mg/mL suspension 150 mg IM [id number] cyanocobalamin (vitamin B-12) 500 mcg tablet 500 mcg PO DAILY cyclobenzaprine 5 mg tablet 5 mg PO BID PRN (Reason: Muscle Spasm) hydrocodone-acetaminophen 5-325 mg tablet metoprolol succinate 25 mg tablet extended release 24 hr PO albuterol sulfate 90 mcg/actuation HFA aerosol inhaler INHALATION Follow-up/Referrals: Jahaira,Roberth Segura MD [Primary Care Provider, Unknown] Time of Disposition: 16:23
== END 2025-07-17 16:27 | disposition home or self-care (01) ==
PROVIDERS: Emergency Provider Nurse Practitioner; PCP Family Medicine
DX: B34.9 Viral infection, unspecified (principal); H00.011 Hordeolum externum right upper eyelid; Z20.822 Contact with and (suspected) exposure to COVID-19; F17.210 Nicotine dependence, cigarettes, uncomplicated; F12.90 Cannabis use, unspecified, uncomplicated; J44.9 Chronic obstructive pulmonary disease, unspecified
CPT/HCPCS: 87426; 87804; 99213; G0463